=== PATIENT | female | born 1970 | race African-American/Black ===

== ENCOUNTER 2016-05-11 15:34 | Emergency (ER) | payer OTHER ==
[2016-05-11 15:47] VITALS: BP 147/73; PULSE 86; TEMP 98; BMI 40.6
[2016-05-11 17:13] LABS: BASOPHIL 0.7 % (0-2.0); EOSINOPHIL 3.3 % (0-4.5); MCH 25.9 pg (25.7-33.7); MCHC 33.1 g/dl (32.0-36.0); MEAN CELL VOLUME 78.4 fl (80-96); MEAN PLT VOLUME 8.5 fl (7.5-11.1); NEUTROPHILS 36.9 % (42.8-82.8); PLATELET COUNT 329 K/MM3 (134-434); RDW 13.8 % (11.6-15.6)
[2016-05-11 17:35] LABS: CALCIUM 9.5 mg/dL (8.5-10.1); CREATININE 0.8 mg/dL (0.55-1.02)
[2016-05-11] MEDS ORDERED: INSULIN REGULAR HUMAN 100 UNITS/ML *VIAL SQ ONE (17:50)
--- NOTE | 2016-05-11 17:58 | PDOC ---
History of Present Illness - General Chief Complaint: Pain Stated Complaint: MOLE/ rt KNEE PAIN Time Seen by Provider: 05/11/16 15:37 History Source: Patient Exam Limitations: No Limitations - History of Present Illness Initial Comments: 05/11/16 17:51 Here for redness to wound of 1 week; post small growth noted to area Severity: mild Associated Symptoms: denies: denies symptoms, cough, nausea/vomiting, weakness Past History - Past Medical History Allergies/Adverse Reactions: Allergies Allergy/AdvReac Type Severity Reaction Status Date / Time azithromycin [From Zithromax] Allergy Intermediate Hives Verified 05/11/16 15:37 magnesium Allergy Verified 05/11/16 15:37 Home Medications: Ambulatory Orders Albuterol 0.083% Nebulizer [place] [Ventolin 0.083% Nebulizer Soln -] 1 neb NEB Q4H PRN 05/22/15 Albuterol Sulfate Inhaler - [Ventolin HFA Inhaler -] 1 inh PO Q4H PRN 05/22/15 Budesonide/Formeterol Fumarate [SYMBICORT 160/4.5mcg -] 1 inh PO DAILY 05/22/15 Fexofenadine/Pseudoephedrine [Dayanara-D 12 Hour Tablet] 1 each PO DAILY #10 tab.er.12h 08/22/15 Asthma: Yes Diabetes: Yes HTN: Yes Hypercholesterolemia: Yes Suicide Attempt (Hx): No Thyroid Disease: Yes (MYASTHENIA GRAVIS) - Surgical History Cardiac Surgery: Yes (THYMECTOMY) - Immunization History Td Vaccination: No Immunization Up to Date: Yes - Psycho/Social/Smoking Cessation Hx Anxiety: No Suicidal Ideation: No Smoking Status: No Smoking History: Never smoked Years of Tobacco Use: 0 Have you smoked in the past 12 months: No Number of Cigarettes Smoked Daily: 0 Cigars Per Day: 0 Information on smoking cessation initiated: No Hx Alcohol Use: No Drug/Substance Use Hx: No Substance Use Type: None Hx Substance Use Treatment: No Review of Systems - Review of Systems Constitutional: No: Chills, Fever, Malaise HEENTM: No: Symptoms Reported Respiratory: No: Symptoms reported, Cough Cardiac (ROS): No: Symptoms Reported ABD/GI: No: Symptoms Reported : No: Symptoms Reported Musculoskeletal: No: Symptoms Reported Integumentary: Yes: Other (small protruding skin lesion to center, anterior, right lower leg; with some surrounding erythema; no streaking). No: Symptoms Reported *Physical Exam - Vital Signs Last Vital Signs Temp Pulse Resp BP Pulse Ox 98.0 F 86 18 147/73 100 05/11/16 15:39 05/11/16 15:39 05/11/16 15:39 05/11/16 15:39 05/11/16 15:39 - Physical Exam General Appearance: Yes: Appropriately Dressed. No: Apparent Distress HEENT: positive: TMs Normal, Pharynx Normal Respiratory/Chest: positive: Lungs Clear, Normal Breath Sounds Integumentary: positive: Other (1 cm small protruding skin lesion to center, mid , anterior calf; with some redness to area) ED Treatment Course - LABORATORY CBC & Chemistry Diagram: 05/11/16 16:23 05/11/16 16:23 - ADDITIONAL ORDERS Additional order review: Laboratory Results 05/11/16 16:23 Sodium 134 L Potassium 4.5 Chloride 98 Carbon Dioxide 27 Anion Gap 9 BUN 10 Creatinine 0.8 D Random Glucose 378 H* D Calcium 9.5 05/11/16 16:23 RBC 5.25 H MCV 78.4 L MCHC 33.1 RDW 13.8 MPV 8.5 Neutrophils % 36.9 L D Lymphocytes % 46.1 H D Monocytes % 13.0 H Eosinophils % 3.3 Basophils % 0.7 D Medical Decision Making - Medical Decision Making 05/11/16 17:56 insulin 5 units sq, post glucose 375, has meds but not taking them for type 2 DM ; xray= read by me noted no FB/ bone abn now; will start bactrim with referral to derm ANA *DC/Admit/Observation/Transfer Diagnosis at time of Disposition: Cellulitis of right lower leg Type 2 diabetes mellitus with hyperglycemia 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
[2016-05-11] MEDS ORDERED: INSULIN NPH 100 UNITS/ML *VIAL ONE (18:06)
== END 2016-05-11 18:12 | disposition home or self-care (01) ==
LOC: JERFT 15:34 → JER 15:34 → JERFT 18:12
PROC: 3E013VG Introduction of Insulin into Subcutaneous Tissue, Percutaneous Approach (ICD-10-PCS; principal; 2016-05-11)
DX: L03.115 Cellulitis of right lower limb (principal); E11.65 Type 2 diabetes mellitus with hyperglycemia; Z79.4 Long term (current) use of insulin; I10 Essential (primary) hypertension; E78.00 Pure hypercholesterolemia, unspecified; J45.909 Unspecified asthma, uncomplicated; G70.00 Myasthenia gravis without (acute) exacerbation
CPT/HCPCS: 36415; 73590-TC-RT; 80048; 85025; 96372; 99281-25

== ENCOUNTER → 2016-08-18 | Emergency (ER) | payer OTHER ==
[~2016-08-18] MED LIST: SODIUM CHLORIDE 1,000 ML IV STA
[2016-08-18 11:40] VITALS: BP 145/93; PULSE 74; TEMP 98.1; BMI 27.8
--- NOTE | 2016-08-18 12:07 | PDOC ---
History of Present Illness - General Chief Complaint: Lightheaded Stated Complaint: Sugar Problem Time Seen by Provider: 08/18/16 11:22 History Source: Patient - History of Present Illness Timing/Duration: other (this am) Associated Symptoms: reports: headaches, nausea/vomiting, weakness. denies: cough, fever/chills, shortness of breath Past History - Past Medical History Allergies/Adverse Reactions: Allergies Allergy/AdvReac Type Severity Reaction Status Date / Time azithromycin [From Zithromax] Allergy Intermediate Hives Verified 05/11/16 15:37 magnesium Allergy Verified 05/11/16 15:37 Home Medications: Ambulatory Orders Albuterol 0.083% Nebulizer [place] [Ventolin 0.083% Nebulizer Soln -] 1 neb NEB Q4H PRN 05/22/15 Albuterol Sulfate Inhaler - [Ventolin HFA Inhaler -] 1 inh PO Q4H PRN 05/22/15 Budesonide/Formeterol Fumarate [SYMBICORT 160/4.5mcg -] 1 inh PO DAILY 05/22/15 Fexofenadine/Pseudoephedrine [Dayanara-D 12 Hour Tablet] 1 each PO DAILY #10 tab.er.12h 08/22/15 Sulfamethoxazole/Trimethoprim [Bactrim Ds -] 1 tab PO BID #14 tablet 05/11/16 Anemia: No Asthma: Yes Cancer: No Cardiac Disorders: No CVA: No COPD: No DVT: No Dementia: No Diabetes: Yes GI Disorders: No Disorders: No HTN: Yes Hypercholesterolemia: Yes HIV: No Kidney Stones: No Liver Disease: No Psychiatric Problems: No Suicide Attempt (Hx): No Seizures: No Thyroid Disease: Yes (MYASTHENIA GRAVIS) Lung CA: No - Surgical History Abdominal Surgery: No Appendectomy: No Cardiac Surgery: Yes (THYMECTOMY) Cholecystectomy: No Gastric Stapling: No GI Surgery: No Lung Surgery: No Neurologic Surgery: No - Immunization History Td Vaccination: No Immunization Up to Date: Yes - Psycho/Social/Smoking Cessation Hx Anxiety: No Suicidal Ideation: No Smoking Status: No Smoking History: Never smoked Years of Tobacco Use: 0 Have you smoked in the past 12 months: No Number of Cigarettes Smoked Daily: 0 Cigars Per Day: 0 Hx Alcohol Use: No Drug/Substance Use Hx: No Substance Use Type: None Hx Substance Use Treatment: No Review of Systems - Review of Systems Constitutional: No: Fever HEENTM: Yes: Blurred Vision Respiratory: No: Cough, Shortness of Breath Cardiac (ROS): Yes: Lightheadedness. No: Chest Pain, Syncope ABD/GI: Yes: Nausea. No: Vomiting Neurological: Yes: Headache, Dizziness *Physical Exam - Vital Signs Last Vital Signs Temp Pulse Resp BP Pulse Ox 98.1 F 74 22 145/93 100 08/18/16 11:25 08/18/16 11:25 08/18/16 11:25 08/18/16 11:25 08/18/16 11:25 - Physical Exam General Appearance: Yes: Appropriately Dressed. No: Apparent Distress HEENT: positive: Normal Voice Neck: positive: Supple Respiratory/Chest: positive: Lungs Clear, Normal Breath Sounds. negative: Respiratory Distress Cardiovascular: positive: Regular Rate, S1, S2 Gastrointestinal/Abdominal: positive: Soft. negative: Tender Integumentary: positive: Dry, Warm Neurologic: positive: Fully Oriented, Alert, Normal Mood/Affect ED Treatment Course - LABORATORY CBC & Chemistry Diagram: 08/18/16 12:20 08/18/16 12:20 Medical Decision Making - Medical Decision Making 08/18/16 12:03 45 yo F, morbidly obesed, h/o asthma, myasthenia gravis, poorly controlled IDDM , p/w sudden onsey weakness w/ dizziness, GLASS and blurry vision tht started at work this am, c/w her hyperglycemia. States FS machine read HI this am at sister 's apt. No CP or SOB. Denies slurred speech or focal weakness See exam Hyperglycemia FS Stable and in NAD in ED w/ unremarkable exam -IVF -insulin -labs r/o DKA -reassess 08/18/16 12:05 08/18/16 15:17 Pt reports feeling better. Final fingerstick 313. Labs otherwise unremarkable and no evidence of DKA. Patient discharged to continue home meds, and given endocrine follow-up for better management of her diabetes *DC/Admit/Observation/Transfer Diagnosis at time of Disposition: Hyperglycemia - Discharge Dispostion Disposition: HOME Condition at time of disposition: Improved - Referrals Referrals: Gerardo Perez MD [Primary Care Provider] - Andreas Tian MD [Staff Physician] - - Patient Instructions Printed Discharge Instructions: DI for Hyperglycemia -- Adult Additional Instructions: Continue home medication and follow up with Dr Tian of endocrinology for better management of your diabetes - Post Discharge Activity Work/School Note: Back to Work
[2016-08-18 12:27] LABS: BASOPHIL 0.6 % (0-2.0); EOSINOPHIL 2.9 % (0-4.5); MCHC 32.6 g/dl (32.0-36.0); MEAN CELL VOLUME 79.8 fl (80-96); MEAN PLT VOLUME 8.3 fl (7.5-11.1); NEUTROPHILS 55.2 % (42.8-82.8); PLATELET COUNT 254 K/MM3 (134-434); WHITE BLOOD COUNT 5.3 K/mm3 (4.0-10.0)
[2016-08-18 12:51] LABS: URINE APPEARANCE CLEAR; URINE BILIRUBIN NEGATIVE (NEGATIVE); URINE COLOR STRAW; URINE GLUCOSE (UA) 3+ (NEGATIVE); URINE KETONE TRACE (NEGATIVE); URINE NITRITE NEGATIVE (NEGATIVE); URINE PROTEIN NEGATIVE (NEGATIVE); URINE UROBILINOGEN NEGATIVE E.U./dl (0.2-1.0)
[2016-08-18 12:51] LABS: VENOUS BLOOD GAS HCO3 25.7 meq/L (19-25); VENOUS PH 7.34 (7.32-7.42)
[2016-08-18 12:54] LABS: URINE BLOOD 1+ (NEGATIVE); URINE LEUK ESTERASE 2+ (NEGATIVE)
[2016-08-18 12:58] LABS: ALBUMIN 3.7 g/dl (3.4-5.0); ALK PHOS 121 U/L (45-117); ANION GAP 9 (8-16); BILIRUBIN,TOTAL 0.4 mg/dL (0.2-1.0); CALCIUM 8.7 mg/dL (8.5-10.1); CO2 25 mmol/L (21-32); COCKROFT - GAULT 167.7815; CREATININE 0.6 mg/dL (0.55-1.02); SGOT/AST 9 U/L (15-37); SGPT/ALT 18 U/L (12-78); TOT PROT 7.7 g/dl (6.4-8.2)
[2016-08-18 13:02] LABS: GLUCOSE,RANDOM 353 mg/dL (74-106)
[2016-08-18 13:36] LABS: URINE RBC 8 /hpf (0-3); URINE WBC 18 /hpf (3-5)
[2016-08-18 14:54] LABS: TROPONIN I < 0.02 ng/ml (0.00-0.05)
--- NOTE | 2016-08-19 16:30 | EKG ---
Test Reason : Blood Pressure : / mmHG Vent. Rate : 075 BPM Atrial Rate : 075 BPM P-R Int : 162 ms QRS Dur : 078 ms QT Int : 392 ms P-R-T Axes : 042 010 011 degrees QTc Int : 437 ms NORMAL SINUS RHYTHM WITH SINUS ARRHYTHMIA NORMAL ECG WHEN COMPARED WITH ECG OF 09-MAR-2014 13:34, T WAVE AMPLITUDE HAS INCREASED IN LATERAL LEADS Confirmed by COLETTE BURDEN MD ([id number]) on 08/19/2016 4:29:50 PM Referred By: Confirmed By:COLETTE BURDEN MD
== END | disposition home or self-care (01) ==
LOC: JER 11:11
PROC: 3E0337Z Introduction of Electrolytic and Water Balance Substance into Peripheral Vein, Percutaneous Approach (ICD-10-PCS; principal; 2016-08-18)
DX: E11.65 Type 2 diabetes mellitus with hyperglycemia (principal); R53.1 Weakness; J45.909 Unspecified asthma, uncomplicated; E78.00 Pure hypercholesterolemia, unspecified; I10 Essential (primary) hypertension; G70.00 Myasthenia gravis without (acute) exacerbation
CPT/HCPCS: 36415; 80053; 81003; 81015; 82009; 82550; 82803; 84484; 85025; 93005; 93010; 96360; 99285-25

== ENCOUNTER 2016-09-29 22:07 | Emergency (ER) | payer OTHER ==
[2016-09-29 22:15] VITALS: BP 152/74; PULSE 85; TEMP 98.1; BMI 36.2
[2016-09-29] MEDS ORDERED: ceFAZolin 2 GRAM PREMIX BAG IVPB ONE (23:17)
[2016-09-30] MEDS ORDERED: traMADol HCL 50 MG TABLET PO ONE (00:40)
--- NOTE | 2016-09-30 00:51 | PDOC ---
History of Present Illness - General History Source: Patient Exam Limitations: No Limitations - History of Present Illness Initial Comments: 09/30/16 00:45 Patient is a 46-year-old female with history of diabetes who presents to the ER with pain and swelling to the right nostril after placement of a nose ring 36 hours previously. Patient complains of severe pain, which is constant, nonradiating, and was worsened when the patient attempted to remove the nose ring. Patient denies fever or chills or purulent discharge. REVIEW OF SYSTEMS CONSTITUTIONAL: No fever, no chills, no fatigue EYES: No visual changes ENT: + Right nostril foreign body/pain/swelling/erythema; No ear pain, no sore throat CARDIOVASCULAR: No chest pain, no palpitations RESPIRATORY: No cough, no SOB GI: No abdominal pain, no nausea, no vomiting, no constipation, no diarrhea GENITOURINARY: No dysuria, no frequency, no hematuria MUSKULOSKELETAL: No backpain, no joint pain, no myalgias SKIN: No rash NEURO: No headache EXAMINATION CONSTITUTIONAL: Well-appearing; well-nourished; in no apparent distress HEAD: Normocephalic; atraumatic EYES: PERRL; EOM intact ENMT: + Metallic foreign body noted to be embedded within the right nostril extending to the mucosal surface with surrounding area of induration and erythema which appears warm to touch; normal oropharynx NECK: Supple; non-tender; no cervical lymphadenopathy CARD: Normal S1, S2; no murmurs, rubs, or gallops RESP: Normal chest excursion with respiration; breath sounds clear and equal bilaterally; no wheezes, rhonchi, or rales ABD: Soft, non-distended; non-tender; no palpable organomegaly, no palpable hernias EXT: Normal ROM in all four extremities; non-tender to palpation; distal pulses intact SKIN: Warm, dry, no rash NEURO: No focal neurological deficiencies. <Nelson Valenzuela - Last Filed: 09/30/16 00:45> <Lazarus Carnes - Last Filed: 09/30/16 00:56> - General Chief Complaint: Foreign Body (FB) Stated Complaint: FOREIGN OBJECT STUCK IN NOSE Time Seen by Provider: 09/29/16 23:01 Past History - Past Medical History Anemia: No Asthma: Yes Cancer: No Cardiac Disorders: No CVA: No COPD: No DVT: No Dementia: No Diabetes: Yes GI Disorders: No Disorders: No HTN: Yes Hypercholesterolemia: Yes HIV: No Kidney Stones: No Liver Disease: No Psychiatric Problems: No Suicide Attempt (Hx): No Seizures: No Thyroid Disease: Yes (MYASTHENIA GRAVIS) Lung CA: No - Surgical History Abdominal Surgery: No Appendectomy: No Cardiac Surgery: Yes (THYMECTOMY) Cholecystectomy: No Gastric Stapling: No GI Surgery: No Lung Surgery: No Neurologic Surgery: No - Immunization History Td Vaccination: No Immunization Up to Date: Yes - Psycho/Social/Smoking Cessation Hx Anxiety: No Suicidal Ideation: No Smoking Status: No Smoking History: Never smoked Years of Tobacco Use: 0 Have you smoked in the past 12 months: No Number of Cigarettes Smoked Daily: 0 Cigars Per Day: 0 Hx Alcohol Use: No Drug/Substance Use Hx: No Substance Use Type: None Hx Substance Use Treatment: No <Nelson Valenzuela - Last Filed: 09/30/16 00:45> <Lazarus Carens - Last Filed: 09/30/16 00:56> - Past Medical History Allergies/Adverse Reactions: Allergies Allergy/AdvReac Type Severity Reaction Status Date / Time azithromycin [From Zithromax] Allergy Intermediate Hives Verified 09/29/16 22:11 magnesium Allergy Verified 09/29/16 22:11 Home Medications: Ambulatory Orders Albuterol 0.083% Nebulizer [place] [Ventolin 0.083% Nebulizer Soln -] 1 neb NEB Q4H PRN 05/22/15 Albuterol Sulfate Inhaler - [Ventolin HFA Inhaler -] 1 inh PO Q4H PRN 05/22/15 Budesonide/Formeterol Fumarate [SYMBICORT 160/4.5mcg -] 1 inh PO DAILY 05/22/15 Fexofenadine/Pseudoephedrine [Dayanara-D 12 Hour Tablet] 1 each PO DAILY #10 tab.er.12h 08/22/15 Sulfamethoxazole/Trimethoprim [Bactrim Ds -] 1 tab PO BID #14 tablet 05/11/16 Amox-Tr/K Cl [Augmentin - 875Mg Tablet] 1 tab PO BID #14 tablet 09/30/16 Tramadol HCl 50 mg PO TID #14 tablet MDD 3 09/30/16 *Physical Exam - Vital Signs Last Vital Signs Temp Pulse Resp BP Pulse Ox 98.1 F 85 18 152/74 99 09/29/16 22:09 09/29/16 22:09 09/29/16 22:09 09/29/16 22:09 09/29/16 22:09 <Nelson Valenzuela - Last Filed: 09/30/16 00:45> - Vital Signs Last Vital Signs Temp Pulse Resp BP Pulse Ox 98.1 F 85 18 152/74 99 09/29/16 22:09 09/29/16 22:09 09/29/16 22:09 09/29/16 22:09 09/29/16 22:09 <Lazarus Carnes - Last Filed: 09/30/16 00:56> ED Treatment Course - Medications Given in the ED: ED Medications Discontinued Medications Generic Name Dose Route Start Last Admin Trade Name Freq PRN Reason Stop Dose Admin Cefazolin Sodium/Dextrose 2 gm 09/29/16 23:17 09/29/16 23:32 Ancef 2 Gm Premixed Ivpb - IVPB 09/29/16 23:18 2 gm ONCE ONE Administration <Nelson Valenzuela - Last Filed: 09/30/16 00:45> - Medications Given in the ED: ED Medications Discontinued Medications Generic Name Dose Route Start Last Admin Trade Name Freq PRN Reason Stop Dose Admin Cefazolin Sodium/Dextrose 2 gm 09/29/16 23:17 09/29/16 23:32 Ancef 2 Gm Premixed Ivpb - IVPB 09/29/16 23:18 2 gm ONCE ONE Administration <Lazarus Carnes - Last Filed: 09/30/16 00:56> Medical Decision Making - Medical Decision Making 09/30/16 00:47 Patient is a 46-year-old female with history diabetes who presents with cellulitis of the right nostril due to embedded foreign body. Foreign body removed after administration of local 2% lidocaine (1 mL). IV Ancef was administered. Tetanus is up-to-date. Will discharge with Augmentin with ENT follow-up. <Nelson Valenzuela - Last Filed: 09/30/16 00:45> *DC/Admit/Observation/Transfer <Nelson Valenzuela - Last Filed: 09/30/16 00:45> - Attestations Scribe Attestion: 09/30/16 00:56 Documentation prepared by Lazarus Carnes, acting as emergency medical technician for Nelson Valenzuela MD. <Lazarus Carnes - Last Filed: 09/30/16 00:56> Diagnosis at time of Disposition: Cellulitis of nose, external Foreign body in nose Qualifiers: Encounter type: initial encounter Qualified Code(s): T17.1XXA - Foreign body in nostril, initial encounter - Prescriptions Prescriptions: Amox-Tr/K Cl [Augmentin - 875Mg Tablet] 1 tab PO BID #14 tablet Tramadol HCl 50 mg PO TID #14 tablet MDD 3 - Referrals Referrals: Gerardo Perez MD [Primary Care Provider] - Nahum Dawkins MD [Staff Physician] - - Patient Instructions Printed Discharge Instructions: DI for Cellulitis -- Adult - Post Discharge Activity Work/School Note: Back to Work
== END 2016-09-30 01:14 | disposition home or self-care (01) ==
LOC: JER 22:07
PROC: 09CK0ZZ Extirpation of Matter from Nasal Mucosa and Soft Tissue, Open Approach (ICD-10-PCS; principal; 2016-09-29)
DX: T17.1XXA Foreign body in nostril, initial encounter (principal); M79.5 Residual foreign body in soft tissue; J34.0 Abscess, furuncle and carbuncle of nose; W45.8XXA Other foreign body or object entering through skin, initial encounter; Y93.89 Activity, other specified; Y92.038 Other place in apartment as the place of occurrence of the external cause
CPT/HCPCS: 99282-25

== ENCOUNTER 2016-10-11 09:21 | Emergency (ER) | payer OTHER ==
[2016-10-11 09:35] VITALS: BMI 40.4
--- NOTE | 2016-10-11 09:37 | PDOC ---
History of Present Illness - General History Source: Patient Exam Limitations: No Limitations - History of Present Illness Initial Comments: 10/11/16 09:59 The patient is a 46 year old female with a significant past medical history of diabetes, HTN, hypercholesterolemia, myasthenia gravis, asthma who presents to the ED with SOB today. The patient reports her symptoms began at work which she believes was caused from poor ventilation in her office. She states that she has not had an asthma attack in a year. At work, she took Albuterol which did not work. She went home and used her nebulizer, which also did not work. She called Dr. Gonsales because of her symptoms, who told her to go to the ED. She also reports that her myasthenia gravis symptoms have been acting up for the past 2 months, which include tightness in her head, headaches, generalized weakness, and double vision. Her last appointment with Dr. Tapia was a month ago. She denies fever, chills, nausea, vomiting, diarrhea. She denies chest pain. She denies alcohol, tobacco, and drug use. FHx: kidney failure <Lisa Dc - Last Filed: 10/11/16 14:00> <Maninder Gandhi - Last Filed: 10/11/16 14:21> - General Stated Complaint: SOB Time Seen by Provider: 10/11/16 09:25 Past History <Lisa Dc - Last Filed: 10/11/16 14:00> - Past Medical History Anemia: No Asthma: Yes Cancer: No Cardiac Disorders: No CVA: No COPD: No DVT: No Dementia: No Diabetes: Yes GI Disorders: No Disorders: No HTN: Yes Hypercholesterolemia: Yes HIV: No Kidney Stones: No Liver Disease: No Psychiatric Problems: No Suicide Attempt (Hx): No Seizures: No Thyroid Disease: Yes (MYASTHENIA GRAVIS) Lung CA: No - Surgical History Abdominal Surgery: No Appendectomy: No Cardiac Surgery: Yes (THYMECTOMY) Cholecystectomy: No Gastric Stapling: No GI Surgery: No Lung Surgery: No Neurologic Surgery: No - Immunization History Td Vaccination: No Immunization Up to Date: Yes - Psycho/Social/Smoking Cessation Hx Anxiety: No Suicidal Ideation: No Smoking Status: No Smoking History: Never smoked Years of Tobacco Use: 0 Have you smoked in the past 12 months: No Number of Cigarettes Smoked Daily: 0 Cigars Per Day: 0 Hx Alcohol Use: No Drug/Substance Use Hx: No Substance Use Type: None Hx Substance Use Treatment: No <Maninder Gandhi - Last Filed: 10/11/16 14:21> - Past Medical History Allergies/Adverse Reactions: Allergies Allergy/AdvReac Type Severity Reaction Status Date / Time azithromycin [From Zithromax] Allergy Intermediate Hives Verified 10/11/16 09:34 magnesium Allergy Verified 10/11/16 09:34 Home Medications: Ambulatory Orders Albuterol 0.083% Nebulizer [place] [Ventolin 0.083% Nebulizer Soln -] 1 neb NEB Q4H PRN 05/22/15 Albuterol Sulfate Inhaler - [Ventolin HFA Inhaler -] 1 inh PO Q4H PRN 05/22/15 Budesonide/Formeterol Fumarate [SYMBICORT 160/4.5mcg -] 1 inh PO DAILY 05/22/15 Albuterol Sulfate Inhaler - [Ventolin Hfa Inhaler -] 1 - 2 inh PO BID 10/11/16 Insulin Lispro [Humalog] 10 unit SQ BID 10/11/16 Pyridostigmine [place] [Mestinon] 60 mg PO DAILY 10/11/16 Review of Systems - Review of Systems Able to Perform ROS?: Yes Comments:: 10/11/16 10:03 CONSTITUTIONAL: Present: generalized weakness Absent: fever, chills, diaphoresis, loss of appetite HEENT: Absent: rhinorrhea, nasal congestion, throat pain, throat swelling, difficulty swallowing, mouth swelling, ear pain, eye pain CARDIOVASCULAR: Absent: chest pain, syncope, palpitations, irregular heart rate, lightheadedness , peripheral edema RESPIRATORY: Present: shortness of breath Absent: cough, dyspnea with exertion, orthopnea, wheezing, stridor, hemoptysis GASTROINTESTINAL: Absent: abdominal pain, abdominal distension, nausea, vomiting, diarrhea, constipation, melena, hematochezia GENITOURINARY: Absent: dysuria, frequency, urgency, hesitancy, hematuria, flank pain, genital pain MUSCULOSKELETAL: Absent: myalgia, arthralgia, joint swelling SKIN: Absent: rash, itching, pallor HEMATOLOGIC/IMMUNOLOGIC: Absent: easy bleeding, easy bruising, lymphadenopathy, frequent infections ENDOCRINE: Absent: unexplained weight gain, unexplained weight loss, heat intolerance, cold intolerance NEUROLOGIC: Present: headache, double vision, tightness in her head Absent: focal weakness or paresthesias, dizziness, unsteady gait, seizure, mental status changes, bladder or bowel incontinence PSYCHIATRIC: Absent: anxiety, depression, suicidal or homicidal ideation, hallucinations. <Lisa Dc Markie - Last Filed: 10/11/16 14:00> *Physical Exam - Vital Signs Last Vital Signs Temp Pulse Resp BP Pulse Ox 97.6 F 135 H 19 135/85 100 10/11/16 09:30 10/11/16 09:30 10/11/16 09:30 10/11/16 09:30 10/11/16 09:30 - Physical Exam Comments: 10/11/16 10:22 GENERAL: Well developed, well nourished. Awake and alert. No acute distress. (+) Obese. HEENT: Normocephalic, atraumatic. PERRLA, EOMI. No conjunctival pallor. Sclera are non- icteric. Moist mucous membranes. Oropharynx is clear. NECK: Supple. Full ROM. No JVD. Carotid pulses 2+ and symmetric, without bruits. No thyromegaly. No lymphadenopathy. CARDIOVASCULAR: Regular rate and rhythm. No murmurs, rubs, or gallops. Distal pulses are 2+ and symmetric. PULMONARY: No evidence of respiratory distress. Lungs clear to auscultation bilaterally. No wheezing, rales or rhonchi. ABDOMINAL: Soft. Non-tender. Non-distended. No rebound or guarding. No organomegaly. Normoactive bowel sounds. MUSCULOSKELETAL Normal range of motion at all joints. No bony deformities or tenderness. No CVA tenderness. EXTREMITIES: No cyanosis. No clubbing. No edema. No calf tenderness. SKIN: Warm and dry. Normal capillary refill. No rashes. No jaundice. NEUROLOGICAL: (+) double vision. Alert, awake, appropriate. Cranial nerves 2-12 intact. No deficits to light touch and temperature in face, upper extremities and lower extremities. No motor deficits in the in face, upper extremities and lower extremities. Normoreflexic in the upper and lower extremities. Normal speech. Toes are downgoing bilaterally. Gait is normal without ataxia. PSYCHIATRIC: Cooperative. Good eye contact. Appropriate mood and affect. <Lisa Dc A - Last Filed: 10/11/16 14:00> Heart Score/ECG Review #1 10/11/16 14:00 Normal sinus rhythm at 77 bpm. Minimal voltage criteria for LVH, may be normal variant. Cannot rule out anterior infarct, age undetermined. <Beni Dcobhan Markie - Last Filed: 10/11/16 14:00> ED Treatment Course - LABORATORY CBC & Chemistry Diagram: 10/11/16 10:32 10/11/16 10:32 - RADIOLOGY Radiograph Interpretation: 10/11/16 13:27 Chest X-Ray Reported by: Dr. Ravinder Levy Impression: No evidence of active pulmonary disease <Beni Dcobglen Aden - Last Filed: 10/11/16 14:00> - LABORATORY CBC & Chemistry Diagram: 10/11/16 10:32 10/11/16 10:32 <Maninder Gandhi - Last Filed: 10/11/16 14:21> *DC/Admit/Observation/Transfer - Attestations Scribe Attestion: 10/11/16 10:00 Documentation prepared by Lisa Dc, acting as medical billing assistant for Maninder Gandhi DO. <Beni Dcobhan Markie - Last Filed: 10/11/16 14:00> - Discharge Dispostion Admit: No - Attestations Physician Attestion: 10/11/16 09:28 I, Dr. Maninder Gandhi, attest that this document has been prepared under my direction and personally reviewed by me in its entirety. I further attest, that it accurately reflects all work, treatment, procedures and medical decision -making performed by me. <Maninder Gandhi - Last Filed: 10/11/16 14:21> Diagnosis at time of Disposition: Myasthenia gravis Asthma Qualifiers: Asthma severity: unspecified severity Asthma complication type: uncomplicated Qualified Code(s): J45.909 - Unspecified asthma, uncomplicated - Discharge Dispostion Disposition: HOME Condition at time of disposition: Good - Referrals Referrals: Gerardo Perez MD [Primary Care Provider] - Jasper Gonsales MD [Staff Physician] - Rojelio Tapia MD [Staff Physician] - - Patient Instructions Printed Discharge Instructions: DI for Myasthenia Gravis (MG), DI for Asthma - - Adult Additional Instructions: Rajeev- All of your test results were normal. I spoke with Dr. Gonsales, you can follow up with both him and Dr. Tapia. Return to us if any problems. Best- Dr. Maninder Gandhi - Post Discharge Activity Work/School Note: Back to Work
--- NOTE | 2016-10-11 10:48 | EKG ---
Test Reason : Blood Pressure : / mmHG Vent. Rate : 077 BPM Atrial Rate : 077 BPM P-R Int : 146 ms QRS Dur : 090 ms QT Int : 402 ms P-R-T Axes : 028 000 000 degrees QTc Int : 454 ms NORMAL SINUS RHYTHM MINIMAL VOLTAGE CRITERIA FOR LVH, MAY BE NORMAL VARIANT CANNOT RULE OUT ANTERIOR INFARCT , AGE UNDETERMINED ABNORMAL ECG WHEN COMPARED WITH ECG OF 18-AUG-2016 11:53, NONSPECIFIC T WAVE ABNORMALITY NOW EVIDENT IN ANTERIOR LEADS Confirmed by COLETTE BURDEN MD ([id number]) on 10/11/2016 10:48:26 AM Referred By: Confirmed By:COLETTE BURDEN MD
[2016-10-11 10:52] LABS: BASOPHIL 1.1 % (0-2.0); EOSINOPHIL 3.5 % (0-4.5); MCH 26.1 pg (25.7-33.7); MCHC 32.4 g/dl (32.0-36.0); MEAN CELL VOLUME 80.4 fl (80-96); MEAN PLT VOLUME 8.4 fl (7.5-11.1); NEUTROPHILS 42.1 % (42.8-82.8); PLATELET COUNT 266 K/MM3 (134-434); RDW 13.4 % (11.6-15.6); WHITE BLOOD COUNT 4.3 K/mm3 (4.0-10.0)
[2016-10-11 11:11] LABS: ALBUMIN 3.3 g/dl (3.4-5.0); ANION GAP 5 (8-16); BILIRUBIN,TOTAL 0.4 mg/dL (0.2-1.0); CALCIUM 8.4 mg/dL (8.5-10.1); CO2 29 mmol/L (21-32); CREATININE 0.5 mg/dL (0.55-1.02); GLUCOSE,RANDOM 220 mg/dL (74-106); INR 1.02 (0.82-1.09); PROTHROMBIN TIME (PATIENT) 11.2 SEC (9.98-11.88); SGPT/ALT 18 U/L (12-78); TOT PROT 7.4 g/dl (6.4-8.2)
[2016-10-11 11:13] LABS: ALK PHOS 112 U/L (45-117); TROPONIN I < 0.02 ng/ml (0.00-0.05)
[2016-10-11 11:17] LABS: SGOT/AST 26 U/L (15-37)
[2016-10-11 12:37] LABS: URINE APPEARANCE CLEAR; URINE BILIRUBIN NEGATIVE (NEGATIVE); URINE BLOOD 3+ (NEGATIVE); URINE COLOR YELLOW; URINE GLUCOSE (UA) 3+ (NEGATIVE); URINE KETONE NEGATIVE (NEGATIVE); URINE LEUK ESTERASE 1+ (NEGATIVE); URINE NITRITE NEGATIVE (NEGATIVE); URINE PROTEIN 1+ (NEGATIVE); URINE UROBILINOGEN NEGATIVE mg/dL (0.2-1.0)
[2016-10-11 12:40] LABS: URINE MUCUS MANY; URINE RBC 13 /hpf (0-3); URINE WBC 44 /hpf (3-5)
[2016-10-11 14:34] VITALS: BP 130/75; PULSE 77; TEMP 98
== END 2016-10-11 14:30 | disposition home or self-care (01) ==
LOC: JER 09:21
DX: J45.909 Unspecified asthma, uncomplicated (principal); G70.00 Myasthenia gravis without (acute) exacerbation; E11.9 Type 2 diabetes mellitus without complications; Z79.4 Long term (current) use of insulin; I10 Essential (primary) hypertension; E78.00 Pure hypercholesterolemia, unspecified
CPT/HCPCS: 36415; 71010-TC; 80053; 81003; 81015; 82550; 84484; 84703; 85025; 85379; 85610; 93005; 93010; 99284-25

== ENCOUNTER 2017-01-13 09:00 | Emergency (ER) | payer OTHER ==
[2017-01-13 09:16] VITALS: BP 138/72; PULSE 80; TEMP 98.3; BMI 40.4
[2017-01-13 10:14] LABS: BASOPHIL 0.7 % (0-2.0); EOSINOPHIL 5.1 % (0-4.5); MCH 25.6 pg (25.7-33.7); MCHC 32.7 g/dl (32.0-36.0); MEAN CELL VOLUME 78.4 fl (80-96); MEAN PLT VOLUME 8.6 fl (7.5-11.1); NEUTROPHILS 43.2 % (42.8-82.8); PLATELET COUNT 299 K/MM3 (134-434); RDW 13.4 % (11.6-15.6); WHITE BLOOD COUNT 5.2 K/mm3 (4.0-10.0)
--- NOTE | 2017-01-13 11:03 | PDOC ---
History of Present Illness - General Chief Complaint: Pain Stated Complaint: LT FOOT SWELLING Time Seen by Provider: 01/13/17 09:22 History Source: Patient Exam Limitations: No Limitations - History of Present Illness Initial Comments: 01/13/17 10:55 Patient is a 46-year-old female with history of myasthenia gravis, insulin- dependent diabetes, asthma, presents with left foot pain, to the medial arch with mild erythema, no edema. Denies trauma, reports pain has been on and off for several months worse when she wears certain shoes. Developed erythema yesterday with increased pain which prompted her to come to the ER. Good ROM, no trauma, no deformity. Past Medical History: Denies. Allergies: Azithromycin, magnesium. Medications: See medication list Family History: Non-contributory Social History: Denies smoking, alcohol use, or IVDU Vital signs on arrival are notable for pulse of 96. Review of Systems GENERAL/CONSTITUTIONAL: No fever or chills. No weakness. No weight change. HEAD, EYES, EARS, NOSE AND THROAT: No change in vision. No ear pain or discharge. No sore throat. CARDIOVASCULAR: No chest pain or shortness of breath. RESPIRATORY: No cough, wheezing, or hemoptysis. GASTROINTESTINAL: No nausea, vomiting, diarrhea or constipation. No rectal bleeding. GENITOURINARY: No dysuria, frequency, or change in urination. MUSCULOSKELETAL: No joint or muscle swelling or pain. No neck or back pain. SKIN AND BREASTS: No rash or easy bruising. NEUROLOGIC: No headache, vertigo, loss of consciousness, or loss of sensation. PSYCHIATRIC: No depression or anxiety. ENDOCRINE: No increased thirst. No abnormal weight change. HEMATOLOGIC/LYMPHATIC: No anemia, easy bleeding, or history of blood clots. ALLERGIC/IMMUNOLOGIC: No hives or skin allergy. No latex allergy. Physical Exam: GENERAL: The patient is awake, alert, and fully oriented, in no acute distress. HEAD: Normal with no signs of trauma. EYES: Pupils equal, round and reactive to light, extraocular movements intact, sclera anicteric, conjunctiva clear. ENT: Ears normal, nares patent, oropharynx clear without exudates. Moist mucous membranes. No uvula deviation NECK: Normal range of motion, supple without lymphadenopathy, JVD, or masses. LUNGS: Breath sounds equal, clear to auscultation bilaterally. No wheezes, and no crackles. HEART: Regular rate and rhythm, normal S1 and S2 without murmur, rub or gallop. ABDOMEN: Soft, nontender, normoactive bowel sounds. No guarding, no rebound. No masses. No bruising or abrasions MUSCULOSKELETAL: Normal range of motion, no edema. No clubbing or cyanosis. No cords, erythema, or tenderness. Pain to arch of left foot, no erythema or edema. no streaking NEUROLOGICAL: Cranial nerves II through XII grossly intact. Normal speech, normal gait. SKIN: Warm, Dry, normal turgor, no rashes or lesions noted. No erythema or edema Past History - Past Medical History Allergies/Adverse Reactions: Allergies Allergy/AdvReac Type Severity Reaction Status Date / Time azithromycin [From Zithromax] Allergy Intermediate Hives Verified 01/13/17 09:10 magnesium Allergy Verified 01/13/17 09:10 Home Medications: Ambulatory Orders Albuterol 0.083% Nebulizer [place] [Ventolin 0.083% Nebulizer Soln -] 1 neb NEB Q4H PRN 05/22/15 Albuterol Sulfate Inhaler - [Ventolin HFA Inhaler -] 1 inh PO Q4H PRN 05/22/15 Budesonide/Formeterol Fumarate [SYMBICORT 160/4.5mcg -] 1 inh PO DAILY 05/22/15 Albuterol Sulfate Inhaler - [Ventolin HFA Inhaler -] 1 - 2 inh PO BID 10/11/16 Insulin Lispro [Humalog] 10 unit SQ BID 10/11/16 Pyridostigmine [place] [Mestinon] 60 mg PO DAILY 10/11/16 Ibuprofen [Motrin -] 600 mg PO QID #28 tablet 01/13/17 Anemia: No Asthma: Yes Cancer: No Cardiac Disorders: No CVA: No COPD: No DVT: No Dementia: No Diabetes: Yes GI Disorders: No Disorders: No HTN: Yes Hypercholesterolemia: Yes Kidney Stones: No Liver Disease: No Psychiatric Problems: No Seizures: No Thyroid Disease: Yes (MYASTHENIA GRAVIS) Lung CA: No - Surgical History Abdominal Surgery: No Appendectomy: No Cardiac Surgery: Yes (THYMECTOMY) Cholecystectomy: No Gastric Stapling: No GI Surgery: No Lung Surgery: No Neurologic Surgery: No - Immunization History Td Vaccination: No Immunization Up to Date: Yes - Suicide/Smoking/Psychosocial Hx Smoking Status: No Smoking History: Never smoked Years of Tobacco Use: 0 Have you smoked in the past 12 months: No Number of Cigarettes Smoked Daily: 0 Cigars Per Day: 0 Hx Alcohol Use: No Drug/Substance Use Hx: No Substance Use Type: None Hx Substance Use Treatment: No *Physical Exam - Vital Signs Last Vital Signs Temp Pulse Resp BP Pulse Ox 98.3 F 80 20 138/72 100 01/13/17 09:11 01/13/17 09:11 01/13/17 09:11 01/13/17 09:11 01/13/17 09:11 ED Treatment Course - LABORATORY CBC & Chemistry Diagram: 01/13/17 09:27 - ADDITIONAL ORDERS Additional order review: 01/13/17 09:27 RBC 5.24 H MCV 78.4 L MCHC 32.7 RDW 13.4 MPV 8.6 Neutrophils % 43.2 Lymphocytes % 39.9 Monocytes % 11.1 H Eosinophils % 5.1 H Basophils % 0.7 - RADIOLOGY Radiology Studies Ordered: Category Date Time Status FOOT-LEFT [RAD] Stat Radiology 01/13/17 09:27 Completed Medical Decision Making - Medical Decision Making 01/13/17 19:09 A/P: Patient here for evaluation of pain to plantar surface of foot, sent to x- ray CBC performed based upon patient's clinical history. X-rays negative for acute fracture dislocation Laboratory Results - last 24 hr 01/13/17 09:27 WBC 5.2 RBC 5.24 H Hgb 13.4 Hct 41.0 MCV 78.4 L MCH 25.6 L MCHC 32.7 RDW 13.4 Plt Count 299 MPV 8.6 Neutrophils % 43.2 Lymphocytes % 39.9 Monocytes % 11.1 H Eosinophils % 5.1 H Basophils % 0.7 No white count, no evidence of infection. Patient with sent to plantar fasciitis will DC patient home with strict instructions to ice plantar surface, anti-inflammatories for pain, follow-up with podiatry or orthopedics. I discussed the physical exam findings, ancillary test results and final diagnoses with the patient. I answered all of the patient's questions. The patient was satisfied with the care received and felt comfortable with the discharge plan and treatment plan. The patient will call to arrange follow-up and will return to the Emergency Department with any new, persistent or worsening symptoms. *DC/Admit/Observation/Transfer Diagnosis at time of Disposition: Plantar fasciitis of left foot - Discharge Dispostion Disposition: HOME Condition at time of disposition: Good Admit: No - Prescriptions Prescriptions: Ibuprofen [Motrin -] 600 mg PO QID #28 tablet - Referrals Referrals: Gerardo Perez MD [Primary Care Provider] - - Patient Instructions Printed Discharge Instructions: Plantar Fasciitis Additional Instructions: Ice to foot Antiinflammatories for pain Supportive shoes Recommend follow-up with orthopedics/ Podiatry in one week if pain persists - Post Discharge Activity Forms/Work/School Notes: Back to Work
== END 2017-01-13 11:31 | disposition home or self-care (01) ==
LOC: JERFT 09:00
DX: M72.2 Plantar fascial fibromatosis (principal); J45.909 Unspecified asthma, uncomplicated; I10 Essential (primary) hypertension; E11.9 Type 2 diabetes mellitus without complications; Z79.4 Long term (current) use of insulin; E78.00 Pure hypercholesterolemia, unspecified; G70.00 Myasthenia gravis without (acute) exacerbation
CPT/HCPCS: 36415; 73630-TC-LT; 85025; 99281-25

== ENCOUNTER 2017-03-23 11:01 | Emergency (ER) | payer OTHER ==
[2017-03-23 11:08] VITALS: BP 132/62; PULSE 94; TEMP 98.4; BMI 39.0
--- NOTE | 2017-03-23 12:20 | PDOC ---
History of Present Illness - General Chief Complaint: Pain Stated Complaint: RT SIDE PAIN Time Seen by Provider: 03/23/17 12:07 - History of Present Illness Initial Comments: 03/23/17 12:19 CHIEF COMPLAINT: rib pain HISTORY OF PRESENT ILLNESS: 46 yo hx of insulin dependent diabetes, HTN, hypercholesterolemia, myasthenia gravis, and asthma presents to fast track with pain to R chest/ribs x "a few days." Patient states that the pain is constant and nothing makes it better or worse. Patient denies any trauma or injury to site of pain, denies any SOB or palpitations. She denies any difficulty breathing. She denies any use of hormones, recent travel, or prolonged periods of sitting. She does report that her sister has a history of blood clots. Patient denies any coughing, URI symptoms, fever, chills, nausea, vomiting, diarrhea. No recent travel or sick contacts. PAST MEDICAL HISTORY: Denies past medical history FAMILY HISTORY: Denies SOCIAL HISTORY: Denies tobacco, alcohol, illicit drug use. SURGICAL HISTORY: thyroid surgery, toe surgery ALLERGIES: azithromycin REVIEW OF SYSTEMS General/Constitutional: Denies fever or chills. Denies weakness. HEENT: Denies change in vision. Denies ear pain or discharge. Denies sore throat. Cardiovascular: Denies chest pain or shortness of breath. Respiratory: Denies cough, wheezing, or hemoptysis. Gastrointestinal: Denies nausea, vomiting, diarrhea or constipation. Denies rectal bleeding. Genitourinary: Denies dysuria, frequency, or change in urination. Musculoskeletal: Right sided pain to ribs. Denies joint or muscle swelling or pain. Denies neck or back pain. Skin and breasts: Denies rash or easy bruising. Neurologic: Denies headache, vertigo, loss of consciousness, or loss of sensation. PHYSICAL EXAM General Appearance: Well-appearing, appropriately dressed. No apparent distress. HEENT: EOMI, PERRLA, normal ENT inspection, normal voice, TMs normal, pharynx normal. No conjunctival pallor. No photophobia, scleral icterus. Neck: Supple. Trachea midline. No tenderness, rigidity, carotid bruit, stridor , lymphadenopathy, or thyromegaly. Respiratory/Chest: Lungs CTAB. No shortness of breath, chest tenderness, respiratory distress, accessory muscle use. No crackles, rales, rhonchi, stridor , wheezing, dullness Cardiovascular: RRR. S1, S2. No JVD, murmur, bradycardia, tachycardia. Vascular Pulses: Dorsalis-Pedis (R): 2+, Dorsalis-Pedis (L): 2+ Gastrointestinal/Abdominal: Normal bowel sounds. Abdomen soft, non-distended. No tenderness or rebound tenderness. No organomegaly, pulsatile mass, guarding , hernia, hepatomegaly, splenomegaly. Lymphatic: No adenopathy, tenderness. Musculoskeletal/Extremities: Reproducible tenderness to R ribs. Normal inspection. FROM of all extremities, normal capillary refill. Pelvis Stable. No CVA tenderness. No tenderness to extremities, pedal edema, swelling, erythema or deformity. Integumentary: Appropriate color, dry, warm. No cyanosis, erythema, jaundice or rash Neurologic: special event assistant II-XII intact. Fully oriented, alert. Appropriate mood/affect. Motor strength 5/5. No appreciable EOM palsy, facial droop or sensory deficit. 03/23/17 12:25 03/23/17 13:40 was Past History - Past Medical History Allergies/Adverse Reactions: Allergies Allergy/AdvReac Type Severity Reaction Status Date / Time azithromycin [From Zithromax] Allergy Intermediate Hives Verified 03/23/17 11:08 magnesium Allergy Verified 03/23/17 11:08 Home Medications: Ambulatory Orders Albuterol 0.083% Nebulizer [place] [Ventolin 0.083% Nebulizer Soln -] 1 neb NEB Q4H PRN 05/22/15 Albuterol Sulfate Inhaler - [Ventolin HFA Inhaler -] 1 inh PO Q4H PRN 05/22/15 Budesonide/Formeterol Fumarate [SYMBICORT 160/4.5mcg -] 1 inh PO DAILY 05/22/15 Insulin Lispro [Humalog] 10 unit SQ BID 10/11/16 Pyridostigmine [place] [Mestinon] 60 mg PO DAILY 10/11/16 Diclofenac Sodium [Voltaren] 100 gm TP ASDIR #1 gel..gram. 03/23/17 Anemia: No Asthma: Yes Cancer: No Cardiac Disorders: No CVA: No COPD: No DVT: No Dementia: No Diabetes: Yes GI Disorders: No Disorders: No HTN: Yes Hypercholesterolemia: Yes Kidney Stones: No Liver Disease: No Psychiatric Problems: No Seizures: No Thyroid Disease: Yes (MYASTHENIA GRAVIS) Lung CA: No - Surgical History Abdominal Surgery: No Appendectomy: No Cardiac Surgery: Yes (THYMECTOMY) Cholecystectomy: No Gastric Stapling: No GI Surgery: No Lung Surgery: No Neurologic Surgery: No - Immunization History Td Vaccination: No Immunization Up to Date: Yes - Suicide/Smoking/Psychosocial Hx Smoking Status: No Smoking History: Never smoked Years of Tobacco Use: 0 Have you smoked in the past 12 months: No Number of Cigarettes Smoked Daily: 0 Cigars Per Day: 0 Hx Alcohol Use: No Drug/Substance Use Hx: No Substance Use Type: None Hx Substance Use Treatment: No *Physical Exam - Vital Signs Last Vital Signs Temp Pulse Resp BP Pulse Ox 98.4 F 94 H 20 132/62 99 03/23/17 11:06 03/23/17 11:06 03/23/17 11:06 03/23/17 11:06 03/23/17 11:06 Medical Decision Making - Medical Decision Making 03/23/17 12:44 46 yo hx of insulin dependent diabetes, HTN, hypercholesterolemia, myasthenia gravis, and asthma presents to fast track with pain to R chest/ribs x "a few days." -chest x-ray -d-dimer r/o PE CXR negative, d-dimer negative. -60 mg Toradol Advised patient to take medication as prescribed and follow up with PCP within the next 2 days. Advised patient of signs and symptoms for return to ED. Patient verbalized understanding and agrees to plan. *DC/Admit/Observation/Transfer Diagnosis at time of Disposition: Chest wall pain - Discharge Dispostion Disposition: HOME Condition at time of disposition: Stable Admit: No - Prescriptions Prescriptions: Diclofenac Sodium [Voltaren] 100 gm TP ASDIR #1 gel..gram. - Referrals Referrals: Gerardo Perez MD [Primary Care Provider] - - Patient Instructions Printed Discharge Instructions: DI for Costochondritis Additional Instructions: Please use medication as prescribed. You MUST follow up with Dr. Perez by TUESDAY. If you experience any new chest pain, headache, shortness of breath, fever, chills, difficulty breathing, or ANY new or worsening symptoms, please return to the ER immediately. - Post Discharge Activity
[2017-03-23] MEDS ORDERED: KETOROLAC TROMETHAMINE 60 MG/2 ML VIAL IM ONE (13:25)
[2017-03-23] MEDS ORDERED: KETOROLAC TROMETHAMINE 60 MG/2 ML VIAL ONE (13:31)
== END 2017-03-23 13:50 | disposition home or self-care (01) ==
LOC: JERFT 11:01
PROC: 3E0233Z Introduction of Anti-inflammatory into Muscle, Percutaneous Approach (ICD-10-PCS; principal; 2017-03-23)
DX: R07.89 Other chest pain (principal); I10 Essential (primary) hypertension; E11.9 Type 2 diabetes mellitus without complications; E78.00 Pure hypercholesterolemia, unspecified; G70.00 Myasthenia gravis without (acute) exacerbation; J45.909 Unspecified asthma, uncomplicated
CPT/HCPCS: 36415; 71046-TC; 84703; 85379; 99281-25

== ENCOUNTER 2017-12-02 00:43 | Emergency (ER) | payer OTHER ==
[2017-12-02 01:08] VITALS: TEMP 98.8; BMI 40.4
--- NOTE | 2017-12-02 01:22 | PDOC ---
Attending Attestation - Resident Resident Name: Zen De Souza - HPI HPI: 12/02/17 03:05 Pt presents to the ED complaining of substernal non radiating chest pain that began at 4:30 pm and lasted for several hours. Pain was non exertional and was moderate in severity and not associated with shortness of breath. Patient is now chest pain free. history of DM, but denies other cardiac risk factors. - Physicial Exam PE: 12/02/17 03:24 Agree with resident exam. patient is alert and in NAD. Heart has regular rate and rhythm with no murmurs, rubs or gallops. - Medical Decision Making 12/02/17 03:24 Pt presents to the Ed complaining of atypical chest pain. EKG is normal. Labs , including cardiac enzymes are within normal limits. HEART score is 2. Patient is low risk for ACS. Will discharge home with instructions to follow up with her PMD for outpatient cardiac work up.
[2017-12-02 01:38] LABS: HEMOGLOBIN 12.4 GM/dL (10.7-15.3); MCH 26.2 pg (25.7-33.7); MCHC 32.7 g/dl (32.0-36.0); MEAN CELL VOLUME 80.2 fl (80-96); MEAN PLT VOLUME 8.5 fl (7.5-11.1); PLATELET COUNT 323 K/MM3 (134-434); RBC 4.74 M/mm3 (3.60-5.2); RDW 13.8 % (11.6-15.6); WHITE BLOOD COUNT 5.7 K/mm3 (4.0-10.0)
--- NOTE | 2017-12-02 01:45 | PDOC ---
History of Present Illness - General Chief Complaint: Chest Pain Stated Complaint: CHEST DISCOMFORT Time Seen by Provider: 12/02/17 01:21 - History of Present Illness Initial Comments: The patient is a 47F with a history of T2DM, Myasthenia Gravis, and Asthma who presents with sharp, non-radiating, worsening substernal chest pain since 1600 yesterday. She states that the pain started in her back and then migrated towards her chest and has since stayed there but has since improved somewhat. She denies having had pain like this before. She denies fevers, GLASS, changes in vision, lightheadedness, SOB, cough, abdominal pain, N/V/C/D, dysuria, or changes in sensation. 12/02/17 01:36 Past History - Past Medical History Allergies/Adverse Reactions: Allergies Allergy/AdvReac Type Severity Reaction Status Date / Time azithromycin [From Zithromax] Allergy Intermediate Hives Verified 11/16/17 07:46 magnesium Allergy Verified 11/16/17 07:46 Home Medications: Ambulatory Orders Albuterol 0.083% Nebulizer [place] [Ventolin 0.083% Nebulizer Soln -] 1 neb NEB Q4H PRN 05/22/15 Albuterol Sulfate Inhaler - [Ventolin HFA Inhaler -] 1 inh PO Q4H PRN 05/22/15 Budesonide/Formeterol Fumarate [SYMBICORT 160/4.5mcg -] 1 inh PO DAILY 05/22/15 Insulin Lispro [Humalog] 10 unit SQ BID 10/11/16 Pyridostigmine [place] [Mestinon] 60 mg PO DAILY 10/11/16 Cephalexin [Keflex] 500 mg PO BID #14 capsule 11/16/17 Cyclobenzaprine HCl [Flexeril -] 10 mg PO TID PRN #21 tablet 11/16/17 Naproxen [Naprosyn -] 500 mg PO BID #14 tablet 11/16/17 Anemia: No Asthma: Yes Cancer: No Cardiac Disorders: No CVA: No COPD: No DVT: No Dementia: No Diabetes: Yes GI Disorders: No Disorders: No HTN: Yes Hypercholesterolemia: Yes Kidney Stones: No Liver Disease: No Psychiatric Problems: No Seizures: No Thyroid Disease: Yes (MYASTHENIA GRAVIS) Lung CA: No - Surgical History Abdominal Surgery: No Appendectomy: No Cardiac Surgery: Yes (THYMECTOMY) Cholecystectomy: No Gastric Stapling: No GI Surgery: No Lung Surgery: No Neurologic Surgery: No - Immunization History Td Vaccination: No Immunization Up to Date: Yes - Suicide/Smoking/Psychosocial Hx Smoking Status: No Smoking History: Never smoked Years of Tobacco Use: 0 Have you smoked in the past 12 months: No Number of Cigarettes Smoked Daily: 0 Cigars Per Day: 0 Hx Alcohol Use: No Drug/Substance Use Hx: No Substance Use Type: None Hx Substance Use Treatment: No Review of Systems - Review of Systems Able to Perform ROS?: Yes Comments:: GENERAL/CONSTITUTIONAL: No fever or chills. No weakness HEAD, EYES, EARS, NOSE AND THROAT: No change in vision. No ear pain or discharge. No sore throat CARDIOVASCULAR: per HPI RESPIRATORY: No cough, wheezing, or hemoptysis GASTROINTESTINAL: No nausea, vomiting, diarrhea or constipation GENITOURINARY: No dysuria, frequency, or change in urination MUSCULOSKELETAL: No joint or muscle swelling or pain. No neck or back pain SKIN: No rash NEUROLOGIC: No headache, vertigo, loss of consciousness, or change in strength/ sensation ENDOCRINE: +MG; No increased thirst. No abnormal weight change HEMATOLOGIC/LYMPHATIC: No anemia, easy bleeding, or history of blood clots ALLERGIC/IMMUNOLOGIC: No hives or skin allergy 12/02/17 02:10 Is the patient limited Korean proficient: No *Physical Exam - Vital Signs Last Vital Signs Temp Pulse Resp BP Pulse Ox 98.8 F 82 18 133/76 100 12/02/17 01:04 12/02/17 01:04 12/02/17 01:04 12/02/17 01:04 12/02/17 01:04 - Physical Exam Comments: GENERAL: Awake, alert, and fully oriented, in no acute distress HEAD: No signs of trauma, normocephalic, atraumatic EYES: PERRL, EOMI, sclera anicteric, conjunctiva clear ENT: Hearing grossly normal, nares patent, oropharynx clear without exudates. Moist mucosa NECK: Normal ROM, supple, no lymphadenopathy LUNGS: No distress, speaks full sentences, clear to auscultation bilaterally HEART:Regular rate and rhythm, normal S1 and S2, no murmurs appreciated, pain not worse with palpation, peripheral pulses normal and equal bilaterally ABDOMEN: Soft, nontender, normoactive bowel sounds. No guarding, no rebound. No masses EXTREMITIES : Normal inspection, Normal range of motion, no edema. No clubbing or cyanosis NEUROLOGICAL: Cranial nerves II through XII grossly intact. Normal speech, normal gait, no focal sensorimotor deficits SKIN: Warm, Dry, normal turgor, no rashes or lesions noted 12/02/17 02:11 Heart Score/ECG Review - History History: Slightly suspicious - Electrocardiogram EKG: Normal - Age Age: 45-65 - Risk Factors Risk Factors Heart Score: Yes Hx Diabetes, Yes Hx Obesity Based on the list above the patient has:: 1-2 risk factors - Troponin Troponin: </= normal limit - Score Heart Score - Total: 2 - ECG Intrepretation Rhythm: Regular Rhythm - [place]: Normal - P and CT Prominent R with upright T in V1 (true posterior [place]): No ED Treatment Course - LABORATORY CBC & Chemistry Diagram: 12/02/17 01:27 12/02/17 01:27 - RADIOLOGY Radiology Studies Ordered: Category Date Time Status CHEST PA & LAT [RAD] Stat Radiology 12/02/17 01:26 Ordered Medical Decision Making - Medical Decision Making The patient is a 47F with a history of Myasthenia Gravis and T2Dm who presents with chest pain since 1600 yesterday Ddx: ACS, PNX, PNA, less likely reflux ED Course CMP, CBC, Cardiac Profile, UA ECG, CXR No leukocytosis 12/02/17 02:12 Trop I negative HEART Score 2 Patient hyperglycemic to 283 but did not take her Novolog last night Patient currently asymptomatic Plan for discharge with PCP follow up Pt was asked to return to the ED immediately for any new or concerning or if they worsen. Pt was in agreement, endorsed understanding, and questions were answered. Dispo: Home w/ PCP f/u 12/02/17 02:39 *DC/Admit/Observation/Transfer Diagnosis at time of Disposition: Chest pain Qualifiers: Chest pain type: unspecified Qualified Code(s): R07.9 - Chest pain, unspecified - Discharge Dispostion Disposition: HOME Condition at time of disposition: Improved Decision to Admit order: No - Referrals Referrals: Gerardo Perez MD [Primary Care Provider] - - Patient Instructions Printed Discharge Instructions: DI for Chest Pain Additional Instructions: You were seen today in the Emergency Department for chest pain. Please review the handouts provided at discharge. Please follow up with your primary care provider within the next 1-3 days. Return to the Emergency Department if you develop fevers, worsening symptoms, or any new concerning symptoms. - Post Discharge Activity
[2017-12-02 01:49] LABS: PROTHROMBIN TIME (PATIENT) 11.3 SEC (9.7-13.0)
[2017-12-02 01:55] VITALS: BP 134/58; PULSE 74
[2017-12-02 02:01] LABS: ALBUMIN 3.4 g/dl (3.4-5.0); ANION GAP 5 MMOL/L (8-16); BILIRUBIN,TOTAL 0.3 mg/dL (0.2-1.0); BLOOD UREA NITROGEN 8 mg/dL (7-18); CALCIUM 8.7 mg/dL (8.5-10.1); CHLORIDE 99 mmol/L (98-107); CO2 30 mmol/L (21-32); CREATININE 0.7 mg/dL (0.55-1.3); GLUCOSE,RANDOM 283 mg/dL (74-106); SGPT/ALT 18 U/L (13-61); SODIUM 134 mmol/L (136-145); TOT PROT 7.6 g/dl (6.4-8.2)
[2017-12-02 02:03] LABS: ALK PHOS 137 U/L (45-117)
[2017-12-02 02:04] LABS: POTASSIUM 4.5 mmol/L (3.5-5.1); SGOT/AST 22 U/L (15-37)
--- NOTE | 2017-12-02 09:13 | EKG ---
Test Reason : Blood Pressure : / mmHG Vent. Rate : 083 BPM Atrial Rate : 083 BPM P-R Int : 154 ms QRS Dur : 082 ms QT Int : 378 ms P-R-T Axes : 058 026 032 degrees QTc Int : 444 ms NORMAL SINUS RHYTHM Confirmed by MEY OCAMPO MD ([id number]) on 12/02/2017 9:13:37 AM Referred By: Confirmed By:MEY OCAMPO MD
== END 2017-12-02 03:22 | disposition home or self-care (01) ==
LOC: JER 00:43
DX: R07.9 Chest pain, unspecified (principal); G70.00 Myasthenia gravis without (acute) exacerbation; E11.9 Type 2 diabetes mellitus without complications
CPT/HCPCS: 36415; 71046-TC-FY; 80053; 82550; 84484; 85027; 85610; 85730; 93005; 93010; 99283-25

== ENCOUNTER 2018-04-30 12:13 | Emergency (ER) | payer OTHER ==
[2018-04-30 12:40] VITALS: BP 134/61; PULSE 77; TEMP 98.5; BMI 15.3
--- NOTE | 2018-04-30 13:29 | PDOC ---
History of Present Illness - General Chief Complaint: Cold Symptoms Stated Complaint: COLD SYMPTOMS Time Seen by Provider: 04/30/18 13:23 History Source: Patient Exam Limitations: No Limitations - History of Present Illness Initial Comments: 04/30/18 13:38 Patient here with complaints of cough, fevers, chills, ear and throat pain, moist nonproductive cough and generalized body aches. and 2 children diagnosed with influenza this past week. Timing/Duration: reports: getting worse Severity: reports: mild, moderate Associated Symptoms: reports: chest pain/soreness, cough, dizziness, earache, fever/chills, muscle aches, nasal congestion Past History - Travel Traveled outside of the country in the last 30 days: No Close contact w/someone who was outside of country & ill: No - Past Medical History Allergies/Adverse Reactions: Allergies Allergy/AdvReac Type Severity Reaction Status Date / Time azithromycin [From Zithromax] Allergy Intermediate Hives Verified 04/30/18 12:36 magnesium Allergy Verified 04/30/18 12:36 Home Medications: Ambulatory Orders Albuterol 0.083% Nebulizer [place] [Ventolin 0.083% Nebulizer Soln -] 1 neb NEB Q4H PRN 05/22/15 Albuterol Sulfate Inhaler - [Ventolin HFA Inhaler -] 1 inh PO Q4H PRN 05/22/15 Budesonide/Formeterol Fumarate [SYMBICORT 160/4.5mcg -] 1 inh PO DAILY 05/22/15 Insulin Lispro [Humalog] 10 unit SQ BID 10/11/16 Pyridostigmine [place] [Mestinon] 60 mg PO DAILY 10/11/16 Cyclobenzaprine HCl [Flexeril -] 10 mg PO TID PRN #21 tablet 11/16/17 Oseltamivir Phosphate [Tamiflu -] 75 mg PO BID #10 capsule 04/30/18 Anemia: No Asthma: Yes Cancer: No Cardiac Disorders: No CVA: No COPD: No DVT: No Dementia: No Diabetes: Yes GI Disorders: No Disorders: No HTN: Yes Hypercholesterolemia: Yes Kidney Stones: No Liver Disease: No Psychiatric Problems: No Seizures: No Thyroid Disease: Yes (MYASTHENIA GRAVIS) Lung CA: No - Surgical History Abdominal Surgery: No Appendectomy: No Cardiac Surgery: Yes (THYMECTOMY) Cholecystectomy: No Gastric Stapling: No GI Surgery: No Lung Surgery: No Neurologic Surgery: No - Immunization History Td Vaccination: No Immunization Up to Date: Yes - Suicide/Smoking/Psychosocial Hx Smoking Status: No Smoking History: Never smoked Years of Tobacco Use: 0 Have you smoked in the past 12 months: No Number of Cigarettes Smoked Daily: 0 Cigars Per Day: 0 Hx Alcohol Use: No Drug/Substance Use Hx: No Substance Use Type: None Hx Substance Use Treatment: No Respiratory Specific PMHX - Complaint Specific PMHX Angina: No Bronchitis: Yes Pneumonia: No Pulmonary Embolus: No TB (Tuberculosis): No Review of Systems - Review of Systems Able to Perform ROS?: Yes Is the patient limited Thai proficient: Yes Constitutional: Yes: Symptoms Reported, See HPI, Malaise HEENTM: Yes: Symptoms Reported, Nose Congestion, Throat Swelling Respiratory: Yes: Symptoms reported, See HPI, Cough. No: Wheezing Musculoskeletal: Yes: Symptoms Reported, See HPI, Muscle Pain, Muscle Weakness All Other Systems: Reviewed and Negative *Physical Exam - Vital Signs Last Vital Signs Temp Pulse Resp BP Pulse Ox 98.5 F 77 18 134/61 98 04/30/18 12:38 04/30/18 12:38 04/30/18 12:38 04/30/18 12:38 04/30/18 12:38 - Physical Exam Comments: 04/30/18 13:39 GENERAL: [The child is awake, alert, and appropriately interactive.] EYES: [The pupils are equal, round, and reactive to light, with clear, conjunctiva.but glassy] NOSE: [The nose with clear drainage EARS: [The ear canals and tympanic membranes are congested but landmarks easily visualed ] THROAT: [The oropharynx is clear with erythema, no exudates. The mucous membranes are moist.] NECK: [The neck is supple with mildly tender adenopathy, no menigemous] CHEST: [The lungs are coarse but clear without crackles, or wheezes.] HEART: [Heart is regular rhythm, with normal S1 and S2, no murmurs.] ABDOMEN: [The abdomen is soft and nontender with normal bowel sounds. There is no organomegaly and no mass. There is no guarding or rebound.] EXTREMITIES: [Extremities are normal.] NEURO: [Behavior is normal for age.cranky but easily,m Tone is normal.] SKIN: [Skin is unremarkable without rash or swelling. There is no bruising, and there are no other signs of injury.] Moderate Sedation - Procedure Monitoring Vital Signs: Procedure Monitoring Vital Signs Temperature 98.5 F 04/30/18 12:38 Pulse Rate 77 04/30/18 12:38 Respiratory Rate 18 04/30/18 12:38 Blood Pressure 134/61 04/30/18 12:38 O2 Sat by Pulse Oximetry (%) 98 04/30/18 12:38 Progress Note - Progress Note Progress Note: Upper respiratory infection, probable influenza as all of family's ill with same. We will treat with Tamiflu *DC/Admit/Observation/Transfer Diagnosis at time of Disposition: Influenzal acute upper respiratory infection - Discharge Dispostion Disposition: HOME Condition at time of disposition: Stable Decision to Admit order: No - Referrals Referrals: Gerardo Perez MD [Primary Care Provider] - - Patient Instructions Printed Discharge Instructions: DI for Viral Upper Respiratory Infection -- Adult Additional Instructions: Rest, drink lots of fluids: Teas, water, soups, Pedialyte Saltwater gargles Steamy showers/seem to face break up mucus Old-fashioned treatments help! Avoid contact with others until fevers and cough resolved as this is very contagious Lots of handwashing and good hygiene Continue [id number] medications for symptomatic relief Tylenol or Motrin for fever and pain Take all of Tamiflu as directed: 1 tab every 12 hours for 5 days Followup with private physician in one to 2 days as needed or if worsening Return to emergency department for worsened symptoms, fevers, dehydration Influenza takes between 5 and 7 days for resolution To not participate in any activity, work, or school until fevers and cough are gone for at least one day - Post Discharge Activity
== END 2018-04-30 13:41 | disposition home or self-care (01) ==
LOC: JERFT 12:13
DX: J11.1 Influenza due to unidentified influenza virus with other respiratory manifestations (principal); I10 Essential (primary) hypertension; E11.9 Type 2 diabetes mellitus without complications; Z79.4 Long term (current) use of insulin; E78.00 Pure hypercholesterolemia, unspecified; G70.00 Myasthenia gravis without (acute) exacerbation
CPT/HCPCS: 99281-25

== ENCOUNTER 2018-05-20 15:34 | Emergency (ER) | payer OTHER ==
[2018-05-20 15:57] VITALS: TEMP 98.2; BMI 40.4
--- NOTE | 2018-05-20 16:41 | PDOC ---
History of Present Illness - General Chief Complaint: Blood Sugar Problem Stated Complaint: RT EYE PROBLEM - History of Present Illness Initial Comments: 05/20/18 16:35 47 yo female with PMH IDDM, Myasthenia Gravis, Asthma presents with 4 days of right eye swelling, erythema, tearing, itching/burning, urinary symptoms consistent with her hx of UTI previously, and difficulty controlling blood sugar. She states that 4 days ago she felt she was developing a stye which was itching/burning and as she scratched and rubbed it over the last few days it has become swollen and she is currently having some blurred vision. She denies any visual field loss or pain with eye movements. She endorses that 2 days ago she began to have some vaginal discomfort and dysuria in addition to cloudy urine. She states these symptoms are identical to UTI's she has had in the past. She endorses having 1-2 UTI's per year. This morning she checked her blood sugar which was in the 300 range and she felt the need to come to the ER for evaluation. She denies any fevers, chills, cough, chest pain, nausea, vomiting, diarrhea Past History - Past Medical History Allergies/Adverse Reactions: Allergies Allergy/AdvReac Type Severity Reaction Status Date / Time azithromycin [From Zithromax] Allergy Intermediate Hives Verified 05/20/18 15:55 magnesium Allergy Verified 05/20/18 15:55 Home Medications: Ambulatory Orders Albuterol 0.083% Nebulizer [place] [Ventolin 0.083% Nebulizer Soln -] 1 neb NEB Q4H PRN 05/22/15 Albuterol Sulfate Inhaler - [Ventolin HFA Inhaler -] 1 inh PO Q4H PRN 05/22/15 Budesonide/Formeterol Fumarate [SYMBICORT 160/4.5mcg -] 1 inh PO DAILY 05/22/15 Insulin Lispro [Humalog] 10 unit SQ BID 10/11/16 Pyridostigmine [place] [Mestinon] 60 mg PO DAILY 10/11/16 Cyclobenzaprine HCl [Flexeril -] 10 mg PO TID PRN #21 tablet 11/16/17 Bacitracin/Polymyxin B Sulfate [Bacitracin-Polymyxin Eye Oint] 3.5 gm OP TID #1 tube 05/20/18 Cephalexin Monohydrate [Keflex -] 500 mg PO BID #9 capsule 05/20/18 Anemia: No Asthma: Yes Cancer: No Cardiac Disorders: No CVA: No COPD: No DVT: No Dementia: No Diabetes: Yes GI Disorders: No Disorders: No HTN: Yes Hypercholesterolemia: Yes Kidney Stones: No Liver Disease: No Psychiatric Problems: No Seizures: No Thyroid Disease: Yes (MYASTHENIA GRAVIS) Lung CA: No - Surgical History Abdominal Surgery: No Appendectomy: No Cardiac Surgery: Yes (THYMECTOMY) Cholecystectomy: No Gastric Stapling: No GI Surgery: No Lung Surgery: No Neurologic Surgery: No - Immunization History Td Vaccination: No Immunization Up to Date: Yes - Suicide/Smoking/Psychosocial Hx Smoking Status: No Smoking History: Never smoked Years of Tobacco Use: 0 Have you smoked in the past 12 months: No Number of Cigarettes Smoked Daily: 0 Cigars Per Day: 0 Hx Alcohol Use: No Drug/Substance Use Hx: No Substance Use Type: None Hx Substance Use Treatment: No Review of Systems - Review of Systems Able to Perform ROS?: Yes Constitutional: Yes: Chills *Physical Exam - Vital Signs Last Vital Signs Temp Pulse Resp BP Pulse Ox 98.2 F 86 19 140/68 100 05/20/18 15:55 05/20/18 15:55 05/20/18 15:55 05/20/18 15:55 05/20/18 15:55 - Physical Exam Comments: 05/20/18 16:35 GEN: A&O, no acute distress HEENT: Mild edema noted in upper eyelid on R eye. No erythema. Tearing and mild drainage noted near the midline NECK: Supple, no lymphadenopathy HEART: RRR, no murmurs LUNGS: CTA b/l ABDOMEN: Soft, nontender EXTREMITIES: no peripheral edema Moderate Sedation - Procedure Monitoring Vital Signs: Procedure Monitoring Vital Signs Temperature 98.2 F 05/20/18 15:55 Pulse Rate 86 05/20/18 15:55 Respiratory Rate 19 05/20/18 15:55 Blood Pressure 140/68 05/20/18 15:55 O2 Sat by Pulse Oximetry (%) 100 05/20/18 15:55 ED Treatment Course - LABORATORY CBC & Chemistry Diagram: 05/20/18 17:35 05/20/18 17:31 Medical Decision Making - Medical Decision Making 05/20/18 17:17 47 yo female presents with right eye swelling/burning for 4 days, urinary symptoms for 2 days, and elevated blood sugar in the 300s. CBC, BMP, UA/culture pending 05/20/18 19:11 1+ LE with 8 WBCs on UA, will treat with Keflex as patient is significantly symptomatic. Will d/c with 5 days Keflex 500 mg BID and Bacitracin/Polymyxin eye ointment TID for blepharitis. Blood sugar okay this afternoon on BMP. *DC/Admit/Observation/Transfer Diagnosis at time of Disposition: UTI (urinary tract infection), External hordeolum - Discharge Dispostion Disposition: HOME Condition at time of disposition: Stable Decision to Admit order: No - Prescriptions Prescriptions: Bacitracin/Polymyxin B Sulfate [Bacitracin-Polymyxin Eye Oint] 3.5 gm OP TID #1 tube Cephalexin Monohydrate [Keflex -] 500 mg PO BID #9 capsule - Referrals Referrals: Gerardo Perez MD [Primary Care Provider] - Tonie Mondragon MD [Staff Physician] - - Patient Instructions Printed Discharge Instructions: DI for Blepharitis Additional Instructions: You were seen in the ER for eye pain/swelling and a Urinary Tract infection. Labs were drawn which were within the normal limits. You were given an antibiotic called Keflex. You should take 1 pill in the morning and one at night for 4 more days until you complete the prescription, which has been sent to the pharmacy. You were also prescribed an ointment for your eye which you should use to the infected area 3 times per day. You should use Warm Compresses on your right eye 4 times per day. You can use a washcloth soaked in warm water. If you have any severe or worsening symptoms, including worsening of your vision , pain upon eye movement, severe abdominal pain, you should be seen by your doctor or return to the emergency department. You should be seen by an [facility] [place] within 1-2 weeks. The name of one has been provided in your discharge packet. You should follow up with your primary care physician within one week. - Post Discharge Activity
--- NOTE | 2018-05-20 16:45 | PDOC ---
Attending Attestation - Resident Resident Name: Uriel Camilo - Medical Decision Making 05/20/18 18:11 Pt presents to the ED complaining of stye to her R eye that became painful today , and dysuria and suprapubic pain. Eye exam shows no signs of orbital or periorbital cellulitis and is consistent with infected hordeolum. Given that the hordeolum appears to be actively draining, will treat with warm compresses, topical antibiotics and optho referral for potential drainage if symptoms are not improving. Will check labs and UA to evaluate for possible UTI. 05/20/18 18:10 <Rachel Arriaga - Last Filed: 05/20/18 18:03> - HPI HPI: This patient is a 47 year old female with PMHx of IDDM, Myasthenia Gravis, and Asthma who presents with 4 days of right eye itching, swelling, and burning pain. Patient states that she initially only had a sty in the inner corner of her right eye. She states that it was very itchy so she was constantly rubbing it. Her eye then became swollen, burning, erythematous, and tearful. She also endorses associated blurred vision. She also complains of burning upon urination that began 2 days ago and her symptoms are consistent with her history with her previous UTIs. She states that her blood sugar was relatively elevated this morning (300s) and states that her sugar is normally not well- controlled. She denies any fevers, chills, cough, chest pain, nausea, vomiting, or diarrhea Allergies: Azithromycin, magnesium. PCP: Gerardo Perez 05/20/18 18:36 - Physicial Exam PE: GENERAL: Awake, alert, and fully oriented, in no acute distress HEAD: No signs of trauma EYES: PERRLA, EOMI, sclera anicteric. Mild swelling of the right upper eyelid w/ out erythema. Hordeolum close to medial campus w/ small area of active drainage. ENT: Auricles normal inspection, hearing grossly normal, nares patent, oropharynx clear without exudates. Moist mucosa NECK: Normal ROM, supple, no lymphadenopathy, JVD, or masses LUNGS: Breath sounds equal, clear to auscultation bilaterally. No wheezes, and no crackles HEART: Regular rate and rhythm, normal S1 and S2, no murmurs, rubs or gallops ABDOMEN: Soft, nontender, normoactive bowel sounds. No guarding, no rebound. No masses. No CVA tenderness. EXTREMITIES: Normal range of motion, no edema. No clubbing or cyanosis. No cords, erythema, or tenderness NEUROLOGICAL: Cranial nerves II through XII grossly intact. Normal speech, normal gait SKIN: Warm, Dry, normal turgor, no rashes or lesions noted. <Blaire Haskins - Last Filed: 05/20/18 19:20> Attestations - Attestations 05/20/18 18:36 Documentation prepared by Blaire Haskins, acting as medical billing representative for Rachel Arriaga MD. <Blaire Haskins - Last Filed: 05/20/18 19:20>
[2018-05-20 17:48] LABS: HEMATOCRIT 38.8 % (32.4-45.2); MCH 27.1 pg (25.7-33.7); MCHC 33.6 g/dl (32.0-36.0); MEAN CELL VOLUME 80.7 fl (80-96); PLATELET COUNT 345 K/MM3 (134-434); RBC 4.81 M/mm3 (3.60-5.2); RDW 13.8 % (11.6-15.6); WHITE BLOOD COUNT 6.6 K/mm3 (4.0-10.0)
[2018-05-20 17:49] LABS: BASO % 0.8 % (0-2.0); LYMPH % 27.9 % (8-40); MEAN PLT VOLUME 8.5 fl (7.5-11.1); MONO % 8.3 % (3.8-10.2)
[2018-05-20 18:11] LABS: URINE APPEARANCE CLEAR; URINE BILIRUBIN NEGATIVE (<2.0 mg/dL); URINE COLOR YELLOW; URINE GLUCOSE (UA) 1+ (NEGATIVE); URINE KETONE NEGATIVE (NEGATIVE); URINE LEUK ESTERASE 1+ (NEGATIVE); URINE NITRITE NEGATIVE (NEGATIVE); URINE PROTEIN NEGATIVE (NEGATIVE); URINE UROBILINOGEN 4.0 E.U/dl mg/dL (0.2-1.0)
[2018-05-20 18:18] LABS: EPI CELLS RARE /HPF (FEW); URINE MUCUS RARE
[2018-05-20 18:40] LABS: ANION GAP 5 MMOL/L (8-16); BLOOD UREA NITROGEN 11 mg/dL (7-18); CHLORIDE 102 mmol/L (98-107); CO2 30 mmol/L (21-32); CREATININE 0.7 mg/dL (0.55-1.3); GLUCOSE,RANDOM 148 mg/dL (74-106); POTASSIUM 4.4 mmol/L (3.5-5.1); SODIUM 136 mmol/L (136-145)
[2018-05-20] MEDS ORDERED: CEPHALEXIN MONOHYDRATE 500 MG CAPSULE (UD) PO ONE (19:04)
[2018-05-20] MEDS ORDERED: CEPHALEXIN MONOHYDRATE 500 MG CAPSULE (UD) ONE (19:16)
[2018-05-20 19:23] VITALS: BP 122/70; PULSE 90
== END 2018-05-20 19:23 | disposition home or self-care (01) ==
LOC: JER 15:34
DX: H00.011 Hordeolum externum right upper eyelid (principal); N39.0 Urinary tract infection, site not specified; I10 Essential (primary) hypertension; E78.00 Pure hypercholesterolemia, unspecified; E11.9 Type 2 diabetes mellitus without complications; Z79.4 Long term (current) use of insulin
CPT/HCPCS: 36415; 80048; 81003; 81015; 85025; 87086; 99285-25

== ENCOUNTER 2018-10-14 22:16 | Emergency (ER) | payer OTHER | END 2018-10-14 23:27 | disposition home or self-care (01) | LOC: JER 22:16 ==

== ENCOUNTER 2018-11-23 09:01 | Emergency (ER) | payer OTHER ==
[2018-11-23 09:17] VITALS: BP 135/58; PULSE 80; TEMP 98; BMI 39.0
[2018-11-23 10:00] LABS: EPI CELLS 3.9 /HPF (0-5/HPF); HYALINE CASTS 35 /lpf (0-8); URINE APPEARANCE CLEAR; URINE BACTERIA 36.2 /hpf (NEGATIVE); URINE BILIRUBIN NEGATIVE (NEGATIVE); URINE COLOR YELLOW; URINE GLUCOSE (UA) NEGATIVE (NEGATIVE); URINE KETONE NEGATIVE (NEGATIVE); URINE LEUK ESTERASE 2+ (NEGATIVE); URINE NITRITE NEGATIVE (NEGATIVE); URINE PROTEIN NEGATIVE (NEGATIVE); URINE WBC 60 /hpf (0-5)
--- NOTE | 2018-11-23 10:04 | PDOC ---
History of Present Illness - General Chief Complaint: Urinary Problem Stated Complaint: R/O UTI Time Seen by Provider: 11/23/18 09:21 - History of Present Illness Initial Comments: 11/23/18 09:58 CHIEF COMPLAINT: UTI HISTORY OF PRESENT ILLNESS: 48 yo F with hx of IDDM presents to [facility] with concerns of a UTI. Patient states "I get UTIs a lot, because I have diabetes. I get them when my sugar is too high." She reports urinary frequency but denies dysuria, denies back pain, fever, chills, nausea, vomiting, or diarrhea. Patient states this feels similar to all her other UTIs. No recent travel or sick contacts. PAST MEDICAL HISTORY: Denies past medical history FAMILY HISTORY: Denies SOCIAL HISTORY: Denies tobacco, alcohol, illicit drug use. SURGICAL HISTORY: Denies ALLERGIES: azithromycin, magnesium REVIEW OF SYSTEMS General/Constitutional: Denies fever or chills. Denies weakness, weight change. HEENT: Denies change in vision. Denies ear pain or discharge. Denies sore throat. Cardiovascular: Denies chest pain or shortness of breath. Respiratory: Denies cough, wheezing, or hemoptysis. Gastrointestinal: Denies nausea, vomiting, diarrhea or constipation. Denies rectal bleeding. Genitourinary: Urinary frequency. Denies dysuria,or change in urination. Musculoskeletal: Denies joint or muscle swelling or pain. Denies neck or back pain. Skin and breasts: Denies rash or easy bruising. Neurologic: Denies headache, vertigo, loss of consciousness, or loss of sensation. PHYSICAL EXAM General Appearance: Well-appearing, appropriately dressed. No apparent distress , no intoxication. HEENT: EOMI, PERRLA, normal ENT inspection, normal voice, TMs normal, pharynx normal. No conjunctival pallor. No photophobia, scleral icterus. Neck: Supple. Trachea midline. No tenderness, rigidity, carotid bruit, stridor , lymphadenopathy, or thyromegaly. Respiratory/Chest: Lungs CTAB. No shortness of breath, chest tenderness, respiratory distress, accessory muscle use. No crackles, rales, rhonchi, stridor , wheezing, dullness Cardiovascular: RRR. S1, S2. No JVD, murmur, bradycardia, tachycardia. Vascular Pulses: Dorsalis-Pedis (R): 2+, Dorsalis-Pedis (L): 2+ Gastrointestinal/Abdominal: Normal bowel sounds. Abdomen soft, non-distended. No tenderness or rebound tenderness. No organomegaly, pulsatile mass, guarding , hernia, hepatomegaly, splenomegaly. Lymphatic: No adenopathy, tenderness. Musculoskeletal/Extremities: Normal inspection. FROM of all extremities, normal capillary refill. Pelvis Stable. No CVA tenderness. No tenderness to extremities, pedal edema, swelling, erythema or deformity. Integumentary: Appropriate color, dry, warm. 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 Fully oriented, alert. Appropriate mood/affect. Motor strength 5/5. No appreciable EOM palsy, facial droop or sensory deficit. Past History - Past Medical History Allergies/Adverse Reactions: Allergies Allergy/AdvReac Type Severity Reaction Status Date / Time azithromycin [From Zithromax] Allergy Intermediate Hives Verified 11/23/18 09:12 magnesium Allergy Verified 11/23/18 09:12 Home Medications: Ambulatory Orders Albuterol 0.083% Nebulizer [place] [Ventolin 0.083% Nebulizer Soln -] 1 neb NEB Q4H PRN 05/22/15 Albuterol Sulfate Inhaler - [Ventolin HFA Inhaler -] 1 inh PO Q4H PRN 05/22/15 Budesonide/Formeterol Fumarate [SYMBICORT 160/4.5mcg -] 1 inh PO DAILY 05/22/15 Insulin Lispro [Humalog] 10 unit SQ BID 10/11/16 Pyridostigmine [place] [Mestinon] 60 mg PO DAILY 10/11/16 Cyclobenzaprine HCl [Flexeril -] 10 mg PO TID PRN #21 tablet 11/16/17 Bacitracin/Polymyxin B Sulfate [Bacitracin-Polymyxin Eye Oint] 3.5 gm OP TID #1 tube 05/20/18 Cephalexin Monohydrate [Keflex -] 500 mg PO BID #9 capsule 05/20/18 Nitrofurantoin Monohyd/M-Cryst [Macrobid -] 100 mg PO BID #14 capsule 11/23/18 Anemia: No Asthma: Yes Cancer: No Cardiac Disorders: No CVA: No COPD: No DVT: No Dementia: No Diabetes: Yes GI Disorders: No Disorders: No HTN: Yes Hypercholesterolemia: Yes Kidney Stones: No Liver Disease: No Psychiatric Problems: No Seizures: No Thyroid Disease: Yes (MYASTHENIA GRAVIS) Lung CA: No - Surgical History Abdominal Surgery: No Appendectomy: No Cardiac Surgery: Yes (THYMECTOMY) Cholecystectomy: No Gastric Stapling: No GI Surgery: No Lung Surgery: No Neurologic Surgery: No - Immunization History Td Vaccination: No Immunization Up to Date: Yes - Suicide/Smoking/Psychosocial Hx Smoking Status: No Smoking History: Never smoked Years of Tobacco Use: 0 Have you smoked in the past 12 months: No Number of Cigarettes Smoked Daily: 0 Cigars Per Day: 0 Information on smoking cessation initiated: No Hx Alcohol Use: No Drug/Substance Use Hx: No Substance Use Type: None Hx Substance Use Treatment: No *Physical Exam - Vital Signs Last Vital Signs Temp Pulse Resp BP Pulse Ox 98 F 80 18 135/58 L 100 11/23/18 09:10 11/23/18 09:10 11/23/18 09:10 11/23/18 09:10 11/23/18 09:10 Medical Decision Making - Medical Decision Making 11/23/18 10:04 48 yo F with hx of IDDM presents [facility] with concerns of a UTI. -UA, ucx Urine WBC +60, will treat for UTI. *DC/Admit/Observation/Transfer Diagnosis at time of Disposition: Urinary tract infection Qualifiers: Urinary tract infection type: site unspecified Hematuria presence: with hematuria Qualified Code(s): N39.0 - Urinary tract infection, site not specified ; R31.9 - Hematuria, unspecified - Discharge Dispostion Disposition: HOME Condition at time of disposition: Stable Decision to Admit order: No - Prescriptions Prescriptions: Nitrofurantoin Monohyd/M-Cryst [Macrobid -] 100 mg PO BID #14 capsule - Referrals Referrals: Gerardo Perez MD [Primary Care Provider] - - Patient Instructions Printed Discharge Instructions: DI for Urinary Tract Infection (UTI) Additional Instructions: Please take medication as prescribed. Follow up with your primary care doctor within the next week. If you develop any new or worsening symptoms, including fever, chills, nausea, vomiting, or diarrhea, please return to the ER immediately. - Post Discharge Activity
== END 2018-11-23 10:21 | disposition home or self-care (01) ==
LOC: JER 09:01 → JERFT 09:01
DX: N39.0 Urinary tract infection, site not specified (principal); R31.9 Hematuria, unspecified; I10 Essential (primary) hypertension; E78.00 Pure hypercholesterolemia, unspecified; E11.9 Type 2 diabetes mellitus without complications; Z79.4 Long term (current) use of insulin; G70.00 Myasthenia gravis without (acute) exacerbation
CPT/HCPCS: 81003; 87086; 99282-25

== ENCOUNTER 2019-02-06 19:57 | Emergency (ER) | payer OTHER ==
--- NOTE | 2019-02-06 20:03 | PDOC ---
Rapid Medical Evaluation Time Seen by Provider: 02/06/19 20:02 Medical Evaluation: Allergies Allergy/AdvReac Type Severity Reaction Status Date / Time azithromycin [From Zithromax] Allergy Intermediate Hives Verified 11/23/18 09:12 magnesium Allergy Verified 11/23/18 09:12 02/06/19 20:03 I have performed a brief in-person evaluation of this patient. The patient presents with a chief complaint of: ankle injury Pertinent physical exam findings:stable and in NAD, non-focal I have ordered the following: xray The patient will proceed to the ED for further evaluation.
[2019-02-06 20:08] VITALS: BP 144/74; PULSE 95; TEMP 98.5; BMI 40.4
--- NOTE | 2019-02-06 20:39 | PDOC ---
History of Present Illness - General Chief Complaint: Injury Stated Complaint: FALL Time Seen by Provider: 02/06/19 20:02 - History of Present Illness Initial Comments: 02/06/19 20:38 48-year-old female with a past medical history of diabetes presents for evaluation of left ankle pain. She describes an inversion injury today. She did not hit her head Past History - Past Medical History Allergies/Adverse Reactions: Allergies Allergy/AdvReac Type Severity Reaction Status Date / Time azithromycin [From Zithromax] Allergy Intermediate Hives Verified 02/06/19 20:04 magnesium Allergy Verified 02/06/19 20:04 Home Medications: Ambulatory Orders Albuterol 0.083% Nebulizer [place] [Ventolin 0.083% Nebulizer Soln -] 1 neb NEB Q4H PRN 05/22/15 Albuterol Sulfate Inhaler - [Ventolin HFA Inhaler -] 1 inh PO Q4H PRN 05/22/15 Budesonide/Formeterol Fumarate [SYMBICORT 160/4.5mcg -] 1 inh PO DAILY 05/22/15 Insulin Lispro [Humalog] 10 unit SQ BID 10/11/16 Pyridostigmine [place] [Mestinon] 60 mg PO DAILY 10/11/16 Cyclobenzaprine HCl [Flexeril -] 10 mg PO TID PRN #21 tablet 11/16/17 Bacitracin/Polymyxin B Sulfate [Bacitracin-Polymyxin Eye Oint] 3.5 gm OP TID #1 tube 05/20/18 Cephalexin Monohydrate [Keflex -] 500 mg PO BID #9 capsule 05/20/18 Nitrofurantoin Monohyd/M-Cryst [Macrobid -] 100 mg PO BID #14 capsule 11/23/18 Anemia: No Asthma: Yes Cancer: No Cardiac Disorders: No CVA: No COPD: No DVT: No Dementia: No Diabetes: Yes GI Disorders: No Disorders: No HTN: Yes Hypercholesterolemia: Yes Kidney Stones: No Liver Disease: No Psychiatric Problems: No Seizures: No Thyroid Disease: Yes (MYASTHENIA GRAVIS) Lung CA: No - Surgical History Abdominal Surgery: No Appendectomy: No Cardiac Surgery: Yes (THYMECTOMY) Cholecystectomy: No Gastric Stapling: No GI Surgery: No Lung Surgery: No Neurologic Surgery: No - Immunization History Td Vaccination: No Immunization Up to Date: Yes - Psycho Social/Smoking Cessation Hx Smoking Status: No Smoking History: Never smoked Years of Tobacco Use: 0 Have you smoked in the past 12 months: No Number of Cigarettes Smoked Daily: 0 Cigars Per Day: 0 Hx Alcohol Use: No Drug/Substance Use Hx: No Substance Use Type: None Hx Substance Use Treatment: No Review of Systems - Review of Systems Musculoskeletal: Yes: Joint Pain *Physical Exam - Vital Signs Last Vital Signs Temp Pulse Resp BP Pulse Ox 98.5 F 95 H 20 144/74 97 02/06/19 20:04 02/06/19 20:04 02/06/19 20:04 02/06/19 20:04 02/06/19 20:04 - Physical Exam Comments: 02/06/19 20:38 Ankle skin color and temperature normal range of motion is slightly limited. There is no tenderness about the proximal fibula or along its distal course. No tenderness about the medial lateral malleolus base of the fifth metatarsal or navicular. Mild tenderness over the ATFL without instability no gross sensorimotor deficits neurovascular intact. Medical Decision Making - Medical Decision Making 02/06/19 20:38 X-rays of the left ankle show no evidence of fracture trauma or destructive process weight-bear as tolerated left ankle sprain Aircast and crutches follow- up with Ortho Discharge - Discharge Information Problems reviewed: Yes Clinical Impression/Diagnosis: Ankle sprain Condition: Stable Disposition: HOME - Admission No - Follow up/Referral Referrals: Arnulfo Williamson DO [Staff Physician] - - Patient Discharge Instructions Additional Instructions: You may weight-bear as tolerated with use of crutches in the Aircast Tylenol as directed for pain. Return to the emergency room for worsening symptoms. And without fail please follow-up with orthopedic surgery in 1 to 2 days for further evaluation and treatment options. - Post Discharge Activity
== END 2019-02-06 20:52 | disposition home or self-care (01) ==
LOC: JERFT 19:57
PROC: 2W3RX1Z Immobilization of Left Lower Leg using Splint (ICD-10-PCS; principal; 2019-02-06)
DX: S93.402A Sprain of unspecified ligament of left ankle, initial encounter (principal); W01.0XXA Fall on same level from slipping, tripping and stumbling without subsequent striking against object, initial encounter; Y93.89 Activity, other specified; Y92.89 Other specified places as the place of occurrence of the external cause; Y99.8 Other external cause status; I10 Essential (primary) hypertension; E78.00 Pure hypercholesterolemia, unspecified; E11.9 Type 2 diabetes mellitus without complications; G70.00 Myasthenia gravis without (acute) exacerbation; J45.909 Unspecified asthma, uncomplicated; Z79.4 Long term (current) use of insulin; E32.8 Other diseases of thymus; E89.89 Other postprocedural endocrine and metabolic complications and disorders
CPT/HCPCS: 29515; 73610-TC-LT-FY; 73630-TC-LT; 99281-25

== ENCOUNTER 2019-04-22 12:38 | Emergency (ER) | payer OTHER ==
[2019-04-22 12:43] VITALS: BP 173/73; PULSE 95; TEMP 97.7; BMI 40.4
--- NOTE | 2019-04-22 13:13 | PDOC ---
History of Present Illness - General Chief Complaint: Respiratory Stated Complaint: COLD SYMPTOMS Time Seen by Provider: 04/22/19 12:45 History Source: Patient Exam Limitations: No Limitations Past History - Past Medical History Allergies/Adverse Reactions: Allergies Allergy/AdvReac Type Severity Reaction Status Date / Time azithromycin [From Zithromax] Allergy Intermediate Hives Verified 04/22/19 12:43 magnesium Allergy Verified 04/22/19 12:43 Home Medications: Ambulatory Orders Albuterol 0.083% Nebulizer [place] [Ventolin 0.083% Nebulizer Soln -] 1 neb NEB Q4H PRN 05/22/15 Albuterol Sulfate Inhaler - [Ventolin HFA Inhaler -] 1 inh PO Q4H PRN 05/22/15 Budesonide/Formeterol Fumarate [SYMBICORT 160/4.5mcg -] 1 inh PO DAILY 05/22/15 Insulin Lispro [Humalog] 10 unit SQ BID 10/11/16 Pyridostigmine [place] [Mestinon] 60 mg PO DAILY 10/11/16 Cyclobenzaprine HCl [Flexeril -] 10 mg PO TID PRN #21 tablet 11/16/17 Bacitracin/Polymyxin B Sulfate [Bacitracin-Polymyxin Eye Oint] 3.5 gm OP TID #1 tube 05/20/18 Cephalexin Monohydrate [Keflex -] 500 mg PO BID #9 capsule 05/20/18 Nitrofurantoin Monohyd/M-Cryst [Macrobid -] 100 mg PO BID #14 capsule 11/23/18 Benzonatate [Tessalon [place] -] 100 mg PO TID #21 capsule 03/24/19 Cetirizine HCl 10 mg PO ACDIN 30 Days #30 tablet 03/24/19 Fluconazole 150 mg PO ONCE 2 Days #2 tablet 03/24/19 Fluconazole [Diflucan] 150 mg PO ONCE #1 tablet 03/24/19 Nystatin/Triamcinolone Top [place] [Mycolog II -] 1 applic TP BID 5 Days #30 g 03/24 Anemia: No Asthma: Yes Cancer: No Cardiac Disorders: No CVA: No COPD: No DVT: No Dementia: No Diabetes: Yes GI Disorders: No Disorders: No HTN: Yes Hypercholesterolemia: Yes Kidney Stones: No Liver Disease: No Psychiatric Problems: No Seizures: No Thyroid Disease: Yes (MYASTHENIA GRAVIS) Lung CA: No - Surgical History Abdominal Surgery: No Appendectomy: No Cardiac Surgery: Yes (THYMECTOMY) Cholecystectomy: No Gastric Stapling: No GI Surgery: No Lung Surgery: No Neurologic Surgery: No - Immunization History Td Vaccination: No Immunization Up to Date: Yes - Psycho Social/Smoking Cessation Hx Smoking Status: No Smoking History: Never smoked Years of Tobacco Use: 0 Have you smoked in the past 12 months: No Number of Cigarettes Smoked Daily: 0 Cigars Per Day: 0 Hx Alcohol Use: No Drug/Substance Use Hx: No Substance Use Type: None Hx Substance Use Treatment: No Respiratory Specific PMHX - Complaint Specific PMHX Hx Bronchitis: Yes Hx Pneumonia: No Hx Pulmonary Embolus: No Hx TB (Tuberculosis): No *Physical Exam - Vital Signs Last Vital Signs Temp Pulse Resp BP Pulse Ox 97.7 F 95 H 18 173/73 H 98 04/22/19 12:39 04/22/19 12:39 04/22/19 12:39 04/22/19 12:39 04/22/19 12:39 - Physical Exam General Appearance: No: Apparent Distress HEENT: positive: Pharynx Normal. negative: Rhinorrhea Respiratory/Chest: positive: Lungs Clear, Normal Breath Sounds. negative: Respiratory Distress Cardiovascular: positive: Regular Rhythm, Regular Rate, S1, S2. negative: Murmur Integumentary: positive: Normal Color Neurologic: positive: Alert Medical Decision Making - Medical Decision Making 48 y/o F hx of HTN, HLD, DM, asthma, myasthenia gravis presents with chills, body aches, mild congestion, sore throat x 3 days. Denies fever, sob, cp, abd pain, n/v/d. Patient's kids were tested positive for flu last week. Denies recent travel. No antipyretics were taken today Likely viral syndrome Though past the 48hr window, will test for flu given patient is diabetic and with asthma Plan: Flu swab Of note, BP elevated (patient did not take her meds this AM); is asymptomatic 04/22/19 13:10 Flu negative stable for dc 04/22/19 13:25 Discharge - Discharge Information Problems reviewed: Yes Clinical Impression/Diagnosis: Viral URI Condition: Stable Disposition: HOME - Admission No - Additional Discharge Information Prescription Drug Monitoring Program (I-STOP) results: I-STOP not reviewed - Follow up/Referral Referrals: Gerardo Perez MD [Primary Care Provider] - 2 Days - Patient Discharge Instructions Patient Printed Discharge Instructions: DI for Viral Upper Respiratory Infection -- Adult Additional Instructions: Thank you for choosing [facility]. It was a pleasure taking care of you. You have viral infection Alternate between Tylenol every 4 and Motrin every 6 hours as needed for fever Recommend rest and hydration Follow-up with your doctor in 2 days Return to the Emergency Department if your symptoms worsen or persist or have other concerning symptoms. - Post Discharge Activity
== END 2019-04-22 13:37 | disposition home or self-care (01) ==
LOC: JERFT 12:38
DX: J06.9 Acute upper respiratory infection, unspecified (principal); B97.89 Other viral agents as the cause of diseases classified elsewhere; J45.909 Unspecified asthma, uncomplicated; I10 Essential (primary) hypertension; E11.9 Type 2 diabetes mellitus without complications; Z79.4 Long term (current) use of insulin; E78.00 Pure hypercholesterolemia, unspecified; G70.00 Myasthenia gravis without (acute) exacerbation; Z88.8 Allergy status to other drugs, medicaments and biological substances; Z88.1 Allergy status to other antibiotic agents
CPT/HCPCS: 87804; 99282-25

== ENCOUNTER 2022-02-07 08:20 | Emergency (ER) | payer OTHER ==
[2022-02-07 08:26] VITALS: BP 144/70; PULSE 93; RESP 18; TEMP 97.7; BMI 43.2
== END 2022-02-07 09:11 | disposition home or self-care (01) ==
LOC: JERFT 08:20 → JER 08:20 → JERFT 09:11
DX: L03.818 Cellulitis of other sites (principal)
CPT/HCPCS: 82962; 99283-25

== ENCOUNTER 2022-05-06 08:10 | Emergency (ER) | payer OTHER ==
[2022-05-06 08:22] VITALS: BMI 43.2
[2022-05-06 09:26] LABS: BASO % 0.7 % (0-2.0); HEMATOCRIT 34.6 % (32.4-45.2); HEMOGLOBIN 11.4 GM/dL (10.7-15.3); LYMPH % 33.6 % (8-40); MCH 25.6 pg (25.7-33.7); MCHC 33.1 g/dl (32.0-36.0); MEAN CELL VOLUME 77.4 fl (80-96); MEAN PLT VOLUME 8.1 fl (7.5-11.1); MONO % 15.3 % (3.8-10.2); NEUT % 48.4 % (42.8-82.8); PLATELET COUNT 303 10^3/uL (134-434); RBC 4.47 M/mm3 (3.60-5.2); RDW 14.8 % (11.6-15.6); WHITE BLOOD COUNT 4.9 K/mm3 (4.0-10.0)
[2022-05-06 09:29] LABS: EPI CELLS 15 /uL (0-25.1); HYALINE CASTS 1 /uL (0-3.1); PH,URINE 5.5 (5.0-8.0); URINE APPEARANCE CLEAR; URINE BACTERIA 103 /uL (0-1359); URINE BILIRUBIN NEGATIVE (NEGATIVE); URINE COLOR YELLOW; URINE GLUCOSE (UA) NEGATIVE (NEGATIVE); URINE KETONE NEGATIVE (NEGATIVE); URINE LEUK ESTERASE 1+ (NEGATIVE); URINE NITRITE NEGATIVE (NEGATIVE); URINE PROTEIN TRACE (NEGATIVE); URINE RBC 2336 /uL (0-23.9); URINE WBC 165 /uL (0-25.8)
[2022-05-06 09:30] LABS: HCG,QUALITATIVE URINE Negative
[2022-05-06 09:45] LABS: BLOOD UREA NITROGEN 13.6 mg/dL (7-18); CALCIUM 8.7 mg/dL (8.5-10.1)
[2022-05-06 09:47] LABS: ALBUMIN 3.4 g/dl (3.4-5.0)
[2022-05-06 09:50] LABS: BILIRUBIN,TOTAL 0.9 mg/dL (0.2-1); CREATININE 0.6 mg/dL (0.55-1.3); TOT PROT 7.6 g/dl (6.4-8.2)
[2022-05-06 11:53] VITALS: BP 113/91; PULSE 87; RESP 16; TEMP 97.6
== END 2022-05-06 11:51 | disposition home or self-care (01) ==
LOC: JER 08:10
DX: N95.0 Postmenopausal bleeding (principal); N30.00 Acute cystitis without hematuria
CPT/HCPCS: 36415; 76830-TC; 80053; 81003; 84703; 85025; 86850; 86900; 86901; 87077; 87086; 99284-25

== ENCOUNTER 2022-08-09 01:58 | Emergency (ER) | payer OTHER ==
[2022-08-09 02:10] VITALS: BP 132/75; PULSE 95; RESP 16; TEMP 98.1; BMI 43.2
[2022-08-09] MEDS ORDERED: CLOTRIMAZOLE 1% CREAM TP ONE (03:22)
== END 2022-08-09 03:32 | disposition home or self-care (01) ==
LOC: JER 01:58
DX: S90.425A Blister (nonthermal), left lesser toe(s), initial encounter (principal); S90.421A Blister (nonthermal), right great toe, initial encounter; B35.3 Tinea pedis; Y99.8 Other external cause status
CPT/HCPCS: 99282-25

== ENCOUNTER 2023-01-01 11:34 | Emergency (ER) | payer OTHER ==
[2023-01-01 12:12] VITALS: BP 138/81; PULSE 91; RESP 18; TEMP 98.4; BMI 40.4
[2023-01-01] MEDS ORDERED: ACETAMINOPHEN 500 MG TABLET (FP) PO ONE (12:49)
[2023-01-01] MEDS ORDERED: ACETAMINOPHEN 500 MG TABLET (FP) ONE (13:26)
== END 2023-01-01 15:30 | disposition home or self-care (01) ==
LOC: JER 11:34 → JERFT 11:34
DX: M19.90 Unspecified osteoarthritis, unspecified site (principal); M79.671 Pain in right foot
CPT/HCPCS: 73630-TC-RT-FY; 99283-25